=== PATIENT | female | born 1940 | race Caucasian/White ===

== ENCOUNTER 2017-01-19 17:31 | Emergency (ER) | payer MEDICARE, BC ==
[2017-01-19 17:52] VITALS: BP 156/106
--- NOTE | 2017-01-19 18:59 | EDM.PDOC ---
ED HPI GENERAL MEDICAL PROBLEM - General Chief Complaint: Gastrointestinal Problem Stated Complaint: LOWER ABD PAIN Time Seen by Provider: 01/19/17 18:55 Source of Information: Reports: Patient, Old Records History Limitations: Reports: No Limitations - History of Present Illness INITIAL COMMENTS - FREE TEXT/NARRATIVE: 77 yo female presents with intermittent low abdominal cramps and decreased stool output. No vomiting. Abdomen feels a little full. No hx of constipation. Onset: Gradual Onset Date: 01/16/17 Duration: Day(s):, Getting Worse Location: Reports: Abdomen Quality: Reports: Other (crampy) Severity: Moderate Improves with: Reports: None Worsens with: Reports: Other (time) Context: Reports: Other (unknown) Associated Symptoms: Reports: No Other Symptoms Treatments DISTILLERY MANAGER: Reports: Other (see below) (none) Abdomen Pain Score (Numeric/FACES): 4 - Related Data Allergies Allergy/AdvReac Type Severity Reaction Status Date / Time Penicillins Allergy Mild Swelling Verified 01/19/17 17:53 Home Meds: Home Meds Cholecalciferol (Vitamin D3) [Vitamin D3] 1,000 unit PO DAILY 01/08/13 [History] Levothyroxine [Synthroid] 88 mcg PO DAILY 01/08/13 [History] Potassium Chloride [Klor-Con M20] 10 meq PO DAILY 01/08/13 [History] Fluticasone Propionate [Flonase] 1 spray NASBOTH DAILY PRN 10/28/13 [History] Allopurinol 50 mg PO DAILY 01/24/14 [History] Furosemide [Lasix] 40 mg PO DAILY PRN 02/23/14 [History] Losartan Potassium [Cozaar] 100 mg PO DAILY 02/23/14 [History] Warfarin Sodium [Jantoven] 5 mg PO DAILY 02/23/14 [History] Citalopram [Citalopram HBr] 10 mg PO DAILY 11/18/15 [History] Clindamycin HCl [Cleocin] 600 mg PO ASDIRECTED PRN 11/18/15 [History] Magnesium Oxide 400 mg PO DAILY 11/18/15 [History] traMADol [Ultram] 50 tab PO Q8H PRN 11/18/15 [History] Metoprolol Succinate [Toprol Xl] 150 mg PO DAILY 01/19/17 [History] Pantoprazole Sodium [Protonix] 40 mg PO DAILY 01/19/17 [History] Past Medical History HEENT History: Reports: Allergic Rhinitis, Cataract, Hard of Hearing, Impaired Vision Cardiovascular History: Reports: Afib, Blood Clots/VTE/DVT, Hypertension Other Cardiovascular History: cardiac ablation 2013 Gastrointestinal History: Reports: Hemorrhoids, Irritable Bowel Syndrome, Other (See Below) Other Gastrointestinal History: diverticulitis Genitourinary History: Reports: None 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: Fibroids, Musculoskeletal History: Reports: Arthritis, Back Pain, Chronic, Other (See Below) Other Musculoskeletal History: herniated disc Psychiatric History: Reports: Depression Endocrine/Metabolic History: Reports: Other (See Below) Other Endocrine/Metabolic History: thyroid disease Oncologic (Cancer) History: Reports: Breast - Infectious Disease History Infectious Disease History: Reports: Chicken Pox - Past Surgical History HEENT Surgical History: Reports: Cataract Surgery, Tonsillectomy Other Cardiovascular Surgeries/Procedures: ablasion GI Surgical History: Reports: Cholecystectomy, Colostomy, Other (See Below) Female Surgical History: Reports: Hysterectomy, Other (See Below) Musculoskeletal Surgical History: Reports: Knee Replacement Oncologic Surgical History: Reports: Lumpectomy Dermatological Surgical History: Reports: None Social & Family History - Family History Family Medical History: Unobtainable - Tobacco Use Smoking Status *Q: Never Smoker Years of Tobacco use: 20 Used Tobacco, but Quit: Yes Month Tobacco Last Used: 1979 Second Hand Smoke Exposure: No - Caffeine Use Caffeine Use: Reports: None Other Caffeine Use: decaf - Alcohol Use Days Per Week of Alcohol Use: 0 - Recreational Drug Use Recreational Drug Use: No - Living Situation & Occupation Living situation: Reports: , with Spouse ED ROS GENERAL - Review of Systems Review Of Systems: See Below Constitutional: Reports: Decreased Appetite HEENT: Reports: No Symptoms Respiratory: Reports: No Symptoms Cardiovascular: Reports: No Symptoms GI/Abdominal: Reports: Abdominal Pain (intermittent), Constipation, Decreased Appetite, Distension (mild). Denies: Black Stool, Bloody Stool, Diarrhea, Hematemesis, Hematochezia, Melena : Reports: No Symptoms Musculoskeletal: Reports: No Symptoms Skin: Reports: No Symptoms ED EXAM, GI/ABD - Physical Exam Exam: See Below Exam Limited By: No Limitations General Appearance: Alert, WD/WN, No Apparent Distress Eyes: Bilateral: Normal Appearance Ears: Normal External Exam, Normal Canal, Hearing Grossly Normal Nose: Normal Inspection, Normal Mucosa, No Blood Throat/Mouth: Normal Inspection, Normal Lips, Normal Oropharynx, Normal Voice, No Airway Compromise Head: Atraumatic, Normocephalic Neck: Normal Inspection, Supple, Non-Tender Respiratory/Chest: No Respiratory Distress, Lungs Clear, Normal Breath Sounds, No Accessory Muscle Use Cardiovascular: Regular Rate, Rhythm, No Edema GI/Abdominal Exam: Normal Bowel Sounds, Soft, Non-Tender, No Distention Back Exam: Normal Inspection. No: CVA Tenderness (R), CVA Tenderness (L) Extremities: Normal Inspection, Normal Range of Motion, Non-Tender, No Pedal Edema Neurological: Alert, Oriented, CN II-XII Intact, Normal Cognition, Normal Gait, No Motor/Sensory Deficits Psychiatric: Normal Affect, Normal Mood Skin Exam: Warm, Dry, Intact, Normal Color, No Rash Lymphatic: No Adenopathy Course - Vital Signs Text/Narrative:: Fleets enema with small results KUB [id number] stool only Tap water enema-moderate results after several attempts, nurse not able to pass enema tool more than about 6 inches up the rectum before meeting resistance. Has a hx of bowel surgery, resection, for diverticular dz Last Recorded V/S: Last Vital Signs Temp 36.5 C 01/19/17 17:51 Pulse 115 H 01/19/17 17:51 Resp 14 01/19/17 17:51 BP 156/106 H 01/19/17 17:51 Pulse Ox 94 L 01/19/17 17:51 - Orders/Labs/Meds Orders: Active Orders 24 hr Category Date Time Status Enema [RC] ASDIRECTED Care 01/19/17 18:55 Active Enema [RC] ASDIRECTED Care 01/19/17 20:07 Active Abdomen 1V Flat [CR] Stat Exams 01/19/17 19:20 Taken Labs: Laboratory Tests 01/19/17 Range/Units 20:22 Urine Color Yellow Urine Appearance Clear Urine pH 6.0 (4.5-8.0) Ur Specific [place] 1.010 (1.008-1.030) Urine Protein Negative (NEGATIVE) mg/dL Urine Glucose (UA) Normal (NEGATIVE) mg/dL Urine Ketones Negative (NEGATIVE) mg/dL Urine Occult Blood Negative (NEGATIVE) Urine Nitrite Negative (NEGATIVE) Urine Bilirubin Negative (NEGATIVE) Urine Urobilinogen Normal (NORMAL) mg/dL Ur Leukocyte Esterase Negative (NEGATIVE) Urine RBC 0-5 (0-5) Urine WBC 0-5 (0-5) Ur Epithelial Cells Few Amorphous Sediment Few Urine Bacteria Rare Urine Mucus Few Meds: Medications Discontinued Medications Generic Name Dose Route Start Last Admin Trade Name Clemencia PRN Reason Stop Dose Admin Sodium Biphosphate/Sodium Phosphate 133 ml 01/19/17 19:08 01/19/17 19:09 Fleet Enema RECTAL 01/19/17 19:09 133 ml ONETIME ONE Administration Departure - Departure Time of Disposition: 22:17 Disposition: Home, Self-Care 01 Condition: Good Clinical Impression: Constipation, Colonic stricture - Discharge Information Referrals: Reggie Leonard MD [Primary Care Provider] - Forms: ED Department Discharge - My Orders Last 24 Hours: My Active Orders 01/19/17 18:55 Enema [RC] ASDIRECTED 01/19/17 19:20 Abdomen 1V Flat [CR] Stat 01/19/17 20:07 Enema [RC] ASDIRECTED - Assessment/Plan Last 24 Hours: My Active Orders 01/19/17 18:55 Enema [RC] ASDIRECTED 01/19/17 19:20 Abdomen 1V Flat [CR] Stat 01/19/17 20:07 Enema [RC] ASDIRECTED
[2017-01-19] MEDS ORDERED: Sodium Phosphate,Monobasic/Sodium Phosphate,Dibasic Enema 133 ML Bottle RECTAL ONE (19:08)
[2017-01-19] MEDS ORDERED: Magnesium Citrate Solution 296 ML Bottle PO ONE (22:15)
--- NOTE | 2017-01-20 10:53 | CR ---
Supine abdomen There is moderate stool retention within the colon. There is no large or small bowel distention. Ther e is a surgical anastomosis seen in the pelvic region. Impression: 1. Moderate stool retention. 2. No acute findings.
== END 2017-01-19 22:36 | disposition home or self-care (01) ==
LOC: JP.ED 17:31
DX: K56.699 Other intestinal obstruction unspecified as to partial versus complete obstruction (principal); K59.00 Constipation, unspecified; Z88.0 Allergy status to penicillin
CPT/HCPCS: 74000; 81001; 99284; A9270; 99283

== ENCOUNTER 2017-01-31 06:47 | Day surgery (SDC) | payer MEDICARE, BC ==
[2017-01-31] MEDS ORDERED: Propofol 200 MG/20 ML SDV ONE (07:08)
[2017-01-31] MEDS ORDERED: fentaNYL 100 MCG/2 ML SDV ONE (07:08)
[2017-01-31] MEDS ORDERED: Neomycin/Polymyxin B 1 ML, Sodium Chloride 0.9% 750 ML ONE ×2 (07:15)
[2017-01-31] MEDS ORDERED: Dextrose 5%-Lactated Ringers 1,000 ML IV SCH (07:30)
[2017-01-31] MEDS ORDERED: Naloxone 0.4 MG/ML SDV ONE (09:47)
[2017-01-31 11:01] VITALS: BP 142/85
--- NOTE | 2017-02-01 17:14 | OR ---
DATE OF PROCEDURE: 01/31/2017 PREOPERATIVE DIAGNOSIS: Obstipation with intent to rule out stricture at colorectal anastomosis. POSTOPERATIVE DIAGNOSIS: No stricture at colorectal anastomosis identified. OPERATIVE PROCEDURE: Flexible sigmoidoscopy. ANESTHESIA: IV sedation. INDICATION FOR PROCEDURE: This is a 77-year-old presenting with some persistent obstipation. She had a colonoscopy along with a barium enema in March of this year. At the time of colonoscopy, she did have a small tubular adenoma removed within the left colon. Her colon was extremely elongated which despite having previous segmental resection, precluded a full colonoscopy, and this was likely the cause of her relative obstipation. She has been treating this reasonably well with some MiraLAX, and she has been instructed to try to adjust the MiraLAX to more or less keep the bowels regular, increasing and decreasing the dose as needed. To rule out any interval colorectal anastomosis stricture, she is to undergo flexible sigmoidoscopy. Potential risks including bleeding and perforation were discussed, and the patient wishes to proceed. DETAILS OF PROCEDURE: The patient was taken to the operating room and placed in a left lateral decubitus position. IV sedation was administered, after which the initial digital rectal exam was performed and was unremarkable. The scope was then passed to roughly 60 cm, which would be well above the area of the colorectal anastomosis. That area was visualized and no stricturing was seen. The scope was then withdrawn, and the procedure was then concluded. The patient will be following up with Dr. Leonard in [facility] in 3 to 4 weeks. One option, if she has continued problems with the obstipation, would be to add something like Amitiza or Linzess. Otherwise, she should have a repeat colonoscopy probably in about 2 years given a tubular adenoma that was removed this past March. Fernando White MD /[id number]
== END 2017-01-31 11:03 | disposition home or self-care (01) ==
LOC: JP.SDS 06:47
PROVIDERS: ATTEND Surgery
DX: K59.00 Constipation, unspecified (principal); Z85.038 Personal history of other malignant neoplasm of large intestine; I10 Essential (primary) hypertension; E03.9 Hypothyroidism, unspecified; E66.9 Obesity, unspecified; G47.30 Sleep apnea, unspecified; Z88.0 Allergy status to penicillin; Z87.891 Personal history of nicotine dependence; Z90.49 Acquired absence of other specified parts of digestive tract; Z98.890 Other specified postprocedural states; Z90.710 Acquired absence of both cervix and uterus; Z96.659 Presence of unspecified artificial knee joint; Z68.30 Body mass index [BMI] 30.0-30.9, adult; F41.9 Anxiety disorder, unspecified; F32.9 Major depressive disorder, single episode, unspecified
CPT/HCPCS: 45330; A4217; J2310; J2704; J3010; J7042

== ENCOUNTER 2017-07-05 09:53 | Emergency (ER) | payer MEDICARE, BC ==
[2017-07-05 10:04] VITALS: BP 96/63
[2017-07-05] MEDS ORDERED: Sodium Chloride 0.9% 1,000 ML IV SCH (10:30)
--- NOTE | 2017-07-05 10:34 | EDM.PDOC ---
ED HPI GENERAL MEDICAL PROBLEM - General Chief Complaint: Respiratory Problem Stated Complaint: WEAK/FATIGUED Time Seen by Provider: 07/05/17 10:29 Source of Information: Reports: Patient History Limitations: Reports: No Limitations - History of Present Illness INITIAL COMMENTS - FREE TEXT/NARRATIVE: pt is feeling very weak nd is feeling sob. Onset: Gradual, Other (pt has been very fatiqued since she had the pneumonia. She is mildly sob. She had a echo at [facility] which did not show marked changes. She had a ejection fraction of 40 which is mildly depressed/ ) Location: Reports: Chest Quality: Reports: Other (pt has no chest pain but is sob. ) Severity: Moderate - Related Data Allergies Allergy/AdvReac Type Severity Reaction Status Date / Time Penicillins Allergy Mild Swelling Verified 01/31/17 08:00 Home Meds: Home Meds Cholecalciferol (Vitamin D3) [Vitamin D3] 1,000 unit PO DAILY 01/08/13 [History] Levothyroxine [Synthroid] 88 mcg PO DAILY 01/08/13 [History] Potassium Chloride [Klor-Con M20] 20 meq PO BID 01/08/13 [History] Fluticasone Propionate [Flonase] 1 spray NASBOTH DAILY PRN 10/28/13 [History] Allopurinol 50 mg PO DAILY 01/24/14 [History] Furosemide [Lasix] 40 mg PO BID PRN 02/23/14 [History] Losartan Potassium [Cozaar] 100 mg PO DAILY 02/23/14 [History] Warfarin Sodium [Jantoven] 5 mg PO DAILY 02/23/14 [History] Magnesium Oxide 400 mg PO DAILY 11/18/15 [History] Metoprolol Succinate [Toprol Xl] 100 mg PO DAILY 01/19/17 [History] ALPRAZolam [Xanax] 0.5 mg PO BID PRN 01/27/17 [History] Ondansetron HCl [Zofran] 4 mg PO ACBREAKFAST PRN 07/05/17 [History] Past Medical History HEENT History: Reports: Allergic Rhinitis, Cataract, Hard of Hearing, Impaired Vision Cardiovascular History: Reports: Afib, Blood Clots/VTE/DVT, Hypertension Other Cardiovascular History: cardiac ablation 2013 Respiratory History: Reports: Sleep Apnea Gastrointestinal History: Reports: Cholelithiasis, Colon Polyp, Hemorrhoids, Irritable Bowel Syndrome, Other (See Below) Other Gastrointestinal History: diverticulitis Genitourinary History: Reports: None 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: 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, Musculoskeletal History: Reports: Arthritis, Back Pain, Chronic, Fracture, Gout , Other (See Below) Other Musculoskeletal History: herniated disc Psychiatric History: Reports: Anxiety, Depression Endocrine/Metabolic History: Reports: Hypothyroidism, Obesity/BMI 30+, Other ( See Below) Other Endocrine/Metabolic History: thyroid disease Oncologic (Cancer) History: Reports: Breast - Infectious Disease History Infectious Disease History: Reports: Chicken Pox, Measles - Past Surgical History HEENT Surgical History: Reports: Cataract Surgery, Tonsillectomy Cardiovascular Surgical History: Reports: Other (See Below) Other Cardiovascular Surgeries/Procedures: ablasion Respiratory Surgical History: Reports: None GI Surgical History: Reports: Cholecystectomy, Colonoscopy, Colostomy Female Surgical History: Reports: Breast Biopsy, Hysterectomy Endocrine Surgical History: Reports: None Musculoskeletal Surgical History: Reports: Knee Replacement Oncologic Surgical History: Reports: Biopsy of Breast, Lumpectomy Dermatological Surgical History: Reports: None Social & Family History - Family History Family Medical History: Unobtainable - Tobacco Use Smoking Status *Q: Never Smoker Years of Tobacco use: 25 Packs/Tins Daily: 0.5 Used Tobacco, but Quit: Yes Month/Year Tobacco Last Used: March Second Hand Smoke Exposure: No - Caffeine Use Caffeine Use: Reports: Coffee Other Caffeine Use: decaf - Alcohol Use Days Per Week of Alcohol Use: 0 - Recreational Drug Use Recreational Drug Use: No - Living Situation & Occupation Living situation: Reports: , with Spouse ED ROS GENERAL - Review of Systems Review Of Systems: See Below Constitutional: Reports: Other (pt did spike a high temp at the onset of the illness. She has not been running temps since that time. ) HEENT: Reports: No Symptoms Respiratory: Reports: Shortness of Breath, Other ( no chest pain) Cardiovascular: Reports: No Symptoms, Other (marked fatique/ ) Endocrine: Reports: No Symptoms GI/Abdominal: Reports: No Symptoms : Reports: No Symptoms Musculoskeletal: Reports: No Symptoms Skin: Reports: No Symptoms ED EXAM, GENERAL - Physical Exam Exam: See Below Free Text/Narrative:: pt arrived with fatique and sob. She had pneumonia and some mild chf and was seen at [facility]. Exam Limited By: No Limitations General Appearance: Alert, Anxious, Mild Distress, Other (pupils are equal and reactive. ) Ears: Normal TMs Nose: Normal Inspection Throat/Mouth: Normal Inspection Head: Atraumatic Neck: Normal Inspection Respiratory/Chest: No Respiratory Distress, Other ( Pt has no rales or infiltrate noticed. ) Cardiovascular: Regular Rate, Rhythm GI/Abdominal: Soft, Non-Tender (Female) Exam: Deferred Rectal (Female) Exam: Deferred Back Exam: Normal Inspection Extremities: Normal Inspection Neurological: Alert, Oriented, Normal Cognition Course - Vital Signs Last Recorded V/S: Last Vital Signs Temp 35.5 C 07/05/17 10:04 Pulse 82 07/05/17 10:04 Resp 26 H 07/05/17 10:04 BP 96/63 07/05/17 10:04 Pulse Ox 99 07/05/17 10:04 Orthostatic Blood Pressure [ 110/81 Standing] Orthostatic Blood Pressure [ 101/74 Sitting] Orthostatic Blood Pressure [ 119/64 Supine] - Orders/Labs/Meds Labs: Laboratory Tests 07/05/17 07/05/17 07/05/17 Range/Units 10:20 10:20 10:20 WBC 10.1 (4.5-11.0) K/uL RBC 5.46 (3.30-5.50) M/uL Hgb 16.2 H D (12.0-15.0) g/dL Hct 47.2 (36.0-48.0) % MCV 86 (80-98) fL MCH 30 (27-31) pg MCHC 34 (32-36) % Plt Count 311 (150-400) K/uL Neut % (Auto) 62 (36-66) % Lymph % (Auto) 26 (24-44) % [place] % (Auto) 11 H (2-6) % Eos % (Auto) 2 (2-4) % Baso % (Auto) 0 (0-1) % Sodium 136 L (140-148) mmol/L Potassium 3.1 L (3.6-5.2) mmol/L Chloride 97 L (100-108) mmol/L Carbon Dioxide 28 (21-32) mmol/L Anion Gap 14.1 H (5.0-14.0) mmol/L BUN 26 H D (7-18) mg/dL Creatinine 1.3 H (0.6-1.0) mg/dL Est Cr Clr Drug Dosing 33.13 mL/min Estimated GFR (MDRD) 40 L (>60) Glucose 120 H (74-106) mg/dL Calcium 9.8 D (8.5-10.1) mg/dL Total Bilirubin 1.2 H D (0.2-1.0) mg/dL AST 21 (15-37) U/L ALT 37 (12-78) U/L Alkaline Phosphatase 47 (46-116) U/L C-Reactive Protein 0.10 (0.0-0.3) mg/dL NT-Pro-B Natriuret Pep (5-450) pg/mL Total Protein 6.1 L (6.4-8.2) g/dL Albumin 3.2 L (3.4-5.0) g/dL Globulin 2.9 (2.3-3.5) g/dL Albumin/Globulin Ratio 1.1 L (1.2-2.2) TSH, Ultra Sensitive (0.358-3.740) uIU/mL Urine Color Urine Appearance Urine pH (4.5-8.0) Ur Specific [place] (1.008-1.030) Urine Protein (NEGATIVE) mg/dL Urine Glucose (UA) (NEGATIVE) mg/dL Urine Ketones (NEGATIVE) mg/dL Urine Occult Blood (NEGATIVE) Urine Nitrite (NEGATIVE) Urine Bilirubin (NEGATIVE) Urine Urobilinogen (NORMAL) mg/dL Ur Leukocyte Esterase (NEGATIVE) Urine RBC (0-5) Urine WBC (0-5) Ur Epithelial Cells Amorphous Sediment Urine Bacteria Urine Mucus 07/05/17 07/05/17 07/05/17 Range/Units 10:29 10:35 11:02 WBC (4.5-11.0) K/uL RBC (3.30-5.50) M/uL Hgb (12.0-15.0) g/dL Hct (36.0-48.0) % MCV (80-98) fL MCH (27-31) pg MCHC (32-36) % Plt Count (150-400) K/uL Neut % (Auto) (36-66) % Lymph % (Auto) (24-44) % [place] % (Auto) (2-6) % Eos % (Auto) (2-4) % Baso % (Auto) (0-1) % Sodium (140-148) mmol/L Potassium (3.6-5.2) mmol/L Chloride (100-108) mmol/L Carbon Dioxide (21-32) mmol/L Anion Gap (5.0-14.0) mmol/L BUN (7-18) mg/dL Creatinine (0.6-1.0) mg/dL Est Cr Clr Drug Dosing mL/min Estimated GFR (MDRD) (>60) Glucose (74-106) mg/dL Calcium (8.5-10.1) mg/dL Total Bilirubin (0.2-1.0) mg/dL AST (15-37) U/L ALT (12-78) U/L Alkaline Phosphatase (46-116) U/L C-Reactive Protein (0.0-0.3) mg/dL NT-Pro-B Natriuret Pep 433 (5-450) pg/mL Total Protein (6.4-8.2) g/dL Albumin (3.4-5.0) g/dL Globulin (2.3-3.5) g/dL Albumin/Globulin Ratio (1.2-2.2) TSH, Ultra Sensitive 4.571 H (0.358-3.740) uIU/mL Urine Color Yellow Urine Appearance Slightly cloudy Urine pH 8.0 (4.5-8.0) Ur Specific [place] 1.010 (1.008-1.030) Urine Protein Negative (NEGATIVE) mg/dL Urine Glucose (UA) Normal (NEGATIVE) mg/dL Urine Ketones Negative (NEGATIVE) mg/dL Urine Occult Blood Negative (NEGATIVE) Urine Nitrite Negative (NEGATIVE) Urine Bilirubin Negative (NEGATIVE) Urine Urobilinogen Normal (NORMAL) mg/dL Ur Leukocyte Esterase Moderate (NEGATIVE) Urine RBC 0-5 (0-5) Urine WBC 0-5 (0-5) Ur Epithelial Cells Moderate Amorphous Sediment Not seen Urine Bacteria Not seen Urine Mucus Rare Meds: Medications Discontinued Medications Generic Name Dose Route Start Last Admin Trade Name Freq PRN Reason Stop Dose Admin Sodium Chloride 1,000 mls @ 500 mls/hr 07/05/17 10:30 07/05/17 10:51 Normal Saline IV 500 mls/hr ASDIRECTED KELLIE Administration - Re-Assessments/Exams Free Text/Narrative Re-Assessment/Exam: 07/05/17 12:01 Pt did not have any infiltrates in the chest, mild cardiomegoly, Her bp was low on arrival and by history she was taking 2 lasix 20mg daily and she is still taking her hydrochlothiazide. She is .finished with the doxecyline. She has a borderline low thyroid. Will decrease her metoprol to 1/2 tablet daily. The k is on the low side will double that. She will return for a lexiscan. Departure - Departure Time of Disposition: 12:10 Disposition: Home, Self-Care 01 Condition: Fair Clinical Impression: SOB (shortness of breath), Weakness, Hypotension - Discharge Information Instructions: Shortness of Breath, Adult, [id number], Hypotension, Easy-to- Read, Weakness, [id number] Referrals: Reggie Leonard MD [Primary Care Provider] - Forms: ED Department Discharge Care Plan Goals: rtc for a lexiscan, pt to follow up with Dr Leonard regarding the lexiscan stop the hydrochlothiazid, reduce the lasix to 1 tab bid one day and 1 tab the next, hold coumadin until monday get inr at [place] on monday, reduce metoprol to 1/2 tab daily, increase kcl to 2 tabs daily. Tsh is greater than 4. Dr Leonard to evaluate that.
--- NOTE | 2017-07-05 11:11 | CR ---
Chest 2V INDICATION: sob , recent pneumonia. FINDINGS: Comparison to 05/08/2016. Heart size minimally enlarged. The infiltrate or atelectasis the l leni bases has resolved. Pulmonary venous hypertension has resolved. No new focal infiltrate. Stable h ypertrophic changes thoracic spine.
== END 2017-07-05 13:19 | disposition home or self-care (01) ==
LOC: JP.ED 09:53
DX: I95.9 Hypotension, unspecified (principal); R06.02 Shortness of breath; R53.1 Weakness; I10 Essential (primary) hypertension; E66.9 Obesity, unspecified; Z79.899 Other long term (current) drug therapy; Z88.0 Allergy status to penicillin; Z79.01 Long term (current) use of anticoagulants
CPT/HCPCS: 36415; 71046; 80053; 81001; 83880; 84443; 85025; 86140; 96360; 96361; 99285; J7040

== ENCOUNTER 2017-07-27 20:30 | Emergency (ER) | payer MEDICARE, BC ==
[2017-07-27 21:05] VITALS: BP 148/81
--- NOTE | 2017-07-27 21:49 | EDM.PDOC ---
ED HPI GENERAL MEDICAL PROBLEM - General Chief Complaint: Head Injury Stated Complaint: FELL/WORRIED ABOUT COUMADIN Time Seen by Provider: 07/27/17 21:36 Source of Information: Reports: Patient History Limitations: Reports: No Limitations - History of Present Illness INITIAL COMMENTS - FREE TEXT/NARRATIVE: This lady comes in for a minor head injury. Earlier today she was leaning over doing something with her rowell. She sort of lost her balance and fell forward bumping her head against a wooden flower box. She's worried because she takes Coumadin. About a week ago her INR was 6 and I believe in the dosage adjustment was made. It was rechecked day before yesterday and was 1.7. She's taking her standard dose. She said she thinks there is a little bump on her for head. There was nothing to suggest a concussion or loss of consciousness. She did not hit her head on the ground - Related Data Allergies Allergy/AdvReac Type Severity Reaction Status Date / Time Penicillins Allergy Mild Swelling Verified 07/07/17 11:53 Home Meds: Home Meds Cholecalciferol (Vitamin D3) [Vitamin D3] 5,000 unit PO DAILY 01/08/13 [History] Levothyroxine [Synthroid] 88 mcg PO DAILY 01/08/13 [History] Potassium Chloride [Klor-Con M20] 20 meq PO BID 01/08/13 [History] Fluticasone Propionate [Flonase] 1 spray NASBOTH DAILY PRN 10/28/13 [History] Allopurinol 50 mg PO DAILY 01/24/14 [History] Furosemide [Lasix] 40 mg PO BID PRN 02/23/14 [History] Losartan Potassium [Cozaar] 100 mg PO DAILY 02/23/14 [History] Warfarin Sodium [Jantoven] 5 mg PO DAILY 02/23/14 [History] Magnesium Oxide 400 mg PO DAILY 11/18/15 [History] Metoprolol Succinate [Toprol Xl] 100 mg PO DAILY 01/19/17 [History] ALPRAZolam [Xanax] 0.5 mg PO BID PRN 01/27/17 [History] Citalopram [Citalopram HBr] 20 mg PO DAILY 07/27/17 [History] Past Medical History HEENT History: Reports: Allergic Rhinitis, Cataract, Hard of Hearing, Impaired Vision Cardiovascular History: Reports: Afib, Blood Clots/VTE/DVT, Hypertension Other Cardiovascular History: cardiac ablation 2013 Respiratory History: Reports: Sleep Apnea Gastrointestinal History: Reports: Cholelithiasis, Colon Polyp, Hemorrhoids, Irritable Bowel Syndrome, Other (See Below) Other Gastrointestinal History: diverticulitis Genitourinary History: Reports: None 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: Fibroids, Musculoskeletal History: Reports: Arthritis, Back Pain, Chronic, Fracture, Gout , Other (See Below) Other Musculoskeletal History: herniated disc Psychiatric History: Reports: Anxiety, Depression Endocrine/Metabolic History: Reports: Hypothyroidism, Obesity/BMI 30+, Other ( See Below) Other Endocrine/Metabolic History: thyroid disease Oncologic (Cancer) History: Reports: Breast - Infectious Disease History Infectious Disease History: Reports: Chicken Pox, Measles, Mumps - Past Surgical History HEENT Surgical History: Reports: Cataract Surgery, Tonsillectomy Cardiovascular Surgical History: Reports: Other (See Below) Other Cardiovascular Surgeries/Procedures: ablasion Respiratory Surgical History: Reports: None GI Surgical History: Reports: Cholecystectomy, Colonoscopy, Colostomy Female Surgical History: Reports: Breast Biopsy, Hysterectomy Endocrine Surgical History: Reports: None Musculoskeletal Surgical History: Reports: Knee Replacement Oncologic Surgical History: Reports: Biopsy of Breast, Lumpectomy Dermatological Surgical History: Reports: None Social & Family History - Family History Family Medical History: Unobtainable - Tobacco Use Smoking Status *Q: Never Smoker Years of Tobacco use: 25 Packs/Tins Daily: 0.5 Used Tobacco, but Quit: Yes Month/Year Tobacco Last Used: March Second Hand Smoke Exposure: No - Caffeine Use Caffeine Use: Reports: Coffee Other Caffeine Use: decaf - Alcohol Use Days Per Week of Alcohol Use: 0 - Recreational Drug Use Recreational Drug Use: No - Living Situation & Occupation Living situation: Reports: , with Spouse ED ROS GENERAL - Review of Systems Review Of Systems: ROS reveals no pertinent complaints other than HPI. ED EXAM, HEAD INJURY - Physical Exam Exam: See Below Exam Limited By: No Limitations General Appearance: Alert, WD/WN, No Apparent Distress Head: Atraumatic (I examined her scalp and for head closely and I don't see any evidence of any trauma. She did indicate one area where she thinks she can feel a little bump. I palpated the area that really don't appreciate anything.) Eyes: Bilateral Eye: EOMI, PERRL Throat/Mouth: Normal Inspection Neurologic: Alert, Normal Mood/Affect, Oriented x 3 Course - Vital Signs Last Recorded V/S: Last Vital Signs Temp 35.8 C 07/27/17 21:05 Pulse 111 H 07/27/17 21:05 Resp 16 07/27/17 21:05 BP 148/81 H 07/27/17 21:05 Pulse Ox 98 07/27/17 21:05 Departure - Departure Time of Disposition: 21:48 Disposition: Home, Self-Care 01 Condition: Good Clinical Impression: Minor head injury - Discharge Information Referrals: Reggie Leonard MD [Primary Care Provider] - Forms: ED Department Discharge Additional Instructions: The injury you got is very very slight and I don't think there is any risk at all of internal bleeding from this. follow-up with your doctor as planned for a repeat INR next week or as recommended by your
== END 2017-07-27 22:04 | disposition home or self-care (01) ==
LOC: JP.ED 20:30
DX: S09.90XA Unspecified injury of head, initial encounter (principal); I10 Essential (primary) hypertension; E03.9 Hypothyroidism, unspecified; I48.91 Unspecified atrial fibrillation; Z88.0 Allergy status to penicillin; Z79.899 Other long term (current) drug therapy; Z79.01 Long term (current) use of anticoagulants; Z87.891 Personal history of nicotine dependence; W19.XXXA Unspecified fall, initial encounter; W22.8XXA Striking against or struck by other objects, initial encounter
CPT/HCPCS: 99283

== ENCOUNTER → 2018-05-10 | Day surgery (SDC) | payer BC, MEDICARE ==
[~2018-05-10] MED LIST: Dextrose 5%-Lactated Ringers 1,000 ML IV SCH; Meropenem 500 MG SDV ONE; Propofol 200 MG/20 ML SDV ONE; Sodium Chloride 0.9% 10 ML ONE; fentaNYL 100 MCG/2 ML SDV ONE
[2018-05-10 10:38] VITALS: BP 122/70
--- NOTE | 2018-05-17 12:33 | OR ---
DATE OF PROCEDURE: 05/10/2018 PREOPERATIVE DIAGNOSES: 1. Persistent constipation. 2. History of adenomatous polyps. POSTOPERATIVE DIAGNOSES: 1. Persistent constipation with mild stricturing at colorectal anastomosis. 2. No recurrent colon polyps. OPERATIVE PROCEDURE: Flexible colonoscopy with dilation of stricture at colorectal anastomosis (94017). ANESTHESIA: IV sedation. INDICATION FOR PROCEDURE: This is a 78-year-old presenting with some ongoing constipation. She also has history of colon polyps in the past. Plan is to proceed with a flexible colonoscopy with biopsies, polypectomy, and/or dilation of any strictures once identified were gone over, and the patient wished to proceed. Potential risks including bleeding and perforation were discussed, and the patient wishes to proceed. DETAILS OF PROCEDURE: The patient was taken to the operating room and placed in a left lateral decubitus position. IV sedation was administered, after which the initial digital rectal exam was performed and was unremarkable. Colonoscope was then passed into the rectum with retroflexion revealing uncomplicated hemorrhoidal columns. The scope was eventually passed up to the level of the colorectal anastomosis. This was mildly narrowed, but the scope was able to be passed through that area. Proximal to that, no additional abnormalities were noted. The prep was fairly good with there only being a small amount of liquid and solid stool present. No additional polyps or other pathology were seen. The scope was withdrawn. At that point, at the colorectal anastomosis, a Bard gastrointestinal balloon catheter was inflated to 54-Wolof size. This was held in position for 1 minute, after which the balloon catheter was deflated and withdrawn. Visualization showed a small amount of blood indicating some degree of dilation, but this was a very mild stricture to begin with. The scope was then withdrawn, and the procedure then concluded. The plan will be to have the patient follow up with us in 2 weeks. If she continues to have significant constipation dilation, I think we can start with some additional stool softeners and intermittent bowel stimulation. If that fails, do order something such as Amitiza or Levsin. A certain degree of stricturing at this point would not be itself enough to cause significant problems with constipation. Fernando White MD /[id number]
== END ==
LOC: JP.SDS 07:28
PROVIDERS: ATTEND Surgery
DX: K59.00 Constipation, unspecified (principal); K91.89 Other postprocedural complications and disorders of digestive system; K64.9 Unspecified hemorrhoids; I50.9 Heart failure, unspecified; I48.91 Unspecified atrial fibrillation; N17.9 Acute kidney failure, unspecified; Z86.010 Personal history of colon polyps
CPT/HCPCS: J2185; J2704; J3010; J7042

== ENCOUNTER 2018-05-25 07:24 | Observation (INO) | payer MEDICARE ==
[2018-05-25] MEDS ORDERED: Albuterol 0.083% 2.5 MG/3 ML Neb Soln NEB ONE (08:26)
--- NOTE | 2018-05-25 09:13 | CRLCR ---
INDICATION: Shortness of breath. COMPARISON: Chest radiograph July 05, 2017. TECHNIQUE: Two-view chest. FINDINGS: Normal size cardiac silhouette. Clear lung cao without evidence of acute pneumonic infiltrates or CHF. No pneumothorax or pleural effusion. IMPRESSION: Negative chest. Dictated by Carlos Austin MD @ May 25 2018 9:10AM Signed by Dr. Carlos Austin @ May 25 2018 9:12AM
--- NOTE | 2018-05-25 10:05 | EDM.PDOC ---
ED HPI GENERAL MEDICAL PROBLEM - General Chief Complaint: Respiratory Problem Stated Complaint: TEMP, SINUS, BODY ACHES Time Seen by Provider: 05/25/18 08:25 Source of Information: Reports: Patient History Limitations: Reports: Other (Is difficult to get much history from this lady because she acts like she feels so bad.) - History of Present Illness INITIAL COMMENTS - FREE TEXT/NARRATIVE: This lady says that she started getting sick a month ago. It started out with some sinus drainage and so forth then seems to go into her chest. She seems to have a little bit of shortness of breath that sort of comes and goes. She saw Dr. Webber on Monday or 3 days ago. He prescribed some Bactrim as well as Robitussin before meals. The Robitussin made her feel goofy so she threw it away. She complains of a low-grade fever off-and-on but says it was up to 101.5 yesterday and again this morning. She hasn't taken any Tylenol for this she did complain of some pain in her shoulders and elbow. She has a history of atrial fibrillation and congestive heart failure. - Related Data Allergies Allergy/AdvReac Type Severity Reaction Status Date / Time Penicillins Allergy Mild Swelling Verified 05/10/18 08:06 celecoxib Allergy Other Verified 05/10/18 08:06 Home Meds: Home Meds Cholecalciferol (Vitamin D3) [Vitamin D3] 2,000 unit PO DAILY 01/08/13 [History] Levothyroxine [Synthroid] 88 mcg PO DAILY 01/08/13 [History] Potassium Chloride [Klor-Con M20] 40 meq PO DAILY 01/08/13 [History] Fluticasone Propionate [Flonase] 1 spray NASBOTH DAILY PRN 10/28/13 [History] Allopurinol 100 mg PO DAILY 01/24/14 [History] Furosemide [Lasix] 40 mg PO DAILY 02/23/14 [History] Losartan Potassium [Cozaar] 100 mg PO DAILY 02/23/14 [History] Warfarin Sodium [Jantoven] 5 mg PO DAILY 02/23/14 [History] Magnesium Oxide 400 mg PO DAILY 11/18/15 [History] Metoprolol Succinate [Toprol Xl] 200 mg PO DAILY 01/19/17 [History] ALPRAZolam [Xanax] 0.5 mg PO BID PRN 01/27/17 [History] Omeprazole 20 mg PO DAILY 05/09/18 [History] Spironolactone [Aldactone] 25 mg PO DAILY 05/09/18 [History] Past Medical History HEENT History: Reports: Allergic Rhinitis, Cataract, Hard of Hearing, Impaired Vision Cardiovascular History: Reports: Afib, Blood Clots/VTE/DVT, Hypertension Other Cardiovascular History: cardiac ablation 2013 Respiratory History: Reports: Sleep Apnea Gastrointestinal History: Reports: Cholelithiasis, Colon Polyp, Hemorrhoids, Irritable Bowel Syndrome, Other (See Below) Other Gastrointestinal History: diverticulitis Genitourinary History: Reports: None 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: Fibroids, Musculoskeletal History: Reports: Arthritis, Back Pain, Chronic, Fracture, Gout , Other (See Below) Other Musculoskeletal History: herniated disc Psychiatric History: Reports: Anxiety, Depression Endocrine/Metabolic History: Reports: Hypothyroidism, Obesity/BMI 30+, Other ( See Below) Other Endocrine/Metabolic History: thyroid disease Oncologic (Cancer) History: Reports: Breast - Infectious Disease History Infectious Disease History: Reports: Chicken Pox, Measles, Mumps - Past Surgical History HEENT Surgical History: Reports: Cataract Surgery, Tonsillectomy Cardiovascular Surgical History: Reports: Other (See Below) Other Cardiovascular Surgeries/Procedures: ablasion Respiratory Surgical History: Reports: None GI Surgical History: Reports: Cholecystectomy, Colonoscopy, Colostomy Female Surgical History: Reports: Breast Biopsy, Hysterectomy Endocrine Surgical History: Reports: None Musculoskeletal Surgical History: Reports: Knee Replacement Oncologic Surgical History: Reports: Biopsy of Breast, Lumpectomy Dermatological Surgical History: Reports: None Social & Family History - Family History Family Medical History: Unobtainable - Tobacco Use Smoking Status *Q: Never Smoker - Caffeine Use Caffeine Use: Reports: Coffee Other Caffeine Use: decaf - Recreational Drug Use Recreational Drug Use: No - Living Situation & Occupation Living situation: Reports: , with Spouse ED ROS GENERAL - Review of Systems Review Of Systems: See Below Constitutional: Reports: Fever, Chills HEENT: Reports: No Symptoms Respiratory: Reports: Shortness of Breath, Wheezing, Cough, Sputum (Yellowish sputum) Cardiovascular: Reports: No Symptoms, Other (Some shoulder and elbow pain) Endocrine: Reports: No Symptoms GI/Abdominal: Reports: No Symptoms : Reports: No Symptoms Musculoskeletal: Reports: No Symptoms Skin: Reports: No Symptoms Neurological: Reports: No Symptoms ED EXAM, GENERAL - Physical Exam Exam: See Below Exam Limited By: No Limitations General Appearance: Alert, WD/WN, Moderate Distress (This lady asked like she feels very bad. She is making some grunting noises from the larynx when she exhales.) Eye Exam: Bilateral Eye: Normal Inspection Throat/Mouth: Normal Oropharynx Head: Atraumatic Neck: Other (See general above) Respiratory/Chest: Other (I hear some transmitted breath sounds I think that's all coming from her larynx) Cardiovascular: Regular Rate, Rhythm GI/Abdominal: Soft, Non-Tender Back Exam: Normal Inspection Extremities: Normal Inspection Neurological: Alert, Oriented Psychiatric: Normal Affect Skin Exam: Warm, Dry Course - Vital Signs Last Recorded V/S: Last Vital Signs Temp 37.4 C 05/25/18 15:54 Pulse 77 05/25/18 15:54 Resp 18 05/25/18 15:54 BP 117/102 H 05/25/18 15:54 Pulse Ox 93 L 05/25/18 15:54 - Orders/Labs/Meds Orders: Active Orders 24 hr Category Date Time Status RT Aerosol Therapy [RC] ASDIRECTED Care 05/25/18 08:28 Inactive Sodium Chloride 0.9% [Saline Flush] Med 05/25/18 10:09 Active 10 ml FLUSH ASDIRECTED PRN Saline Lock Insert [OM.PC] Urgent Oth 05/25/18 10:09 Ordered EKG 12 Lead [EK] Urgent Ther 05/25/18 08:26 Stop Req Medication Orders Acetaminophen (Tylenol) 650 mg PO Q4H PRN PRN Reason: Pain (Mild 1-3)/fever Albuterol (Proventil Neb Soln) 2.5 mg NEB Q4H PRN PRN Reason: Shortness Of Breath/wheezing Albuterol (Proventil Neb Soln) 2.5 mg NEB QIDRT KELLIE Last Admin: 05/25/18 15:12 Dose: 2.5 mg Allopurinol (Zyloprim) 100 mg PO DAILY KELLIE Alprazolam (Xanax) 0.5 mg PO BID PRN PRN Reason: Anxiety Azithromycin (Zithromax) 250 mg PO DAILY KELLIE Benzonatate (Tessalon Perles) 100 mg PO TID PRN PRN Reason: Cough Last Admin: 05/25/18 13:33 Dose: 100 mg Guaifenesin (Mucinex) 600 mg PO TID [facility] Last Admin: 05/25/18 13:34 Dose: 600 mg Sodium Chloride (Normal Saline) 1,000 mls @ 125 mls/hr IV ASDIRECTED KELLIE Stop: 05/25/18 20:55 Last Admin: 05/25/18 13:38 Dose: 125 mls/hr Levothyroxine Sodium (Synthroid) 88 mcg PO DAILY@0730 KELLIE Magnesium Oxide (Magnesium Oxide) 400 mg PO DAILY KELLIE (Losartan Potassium [Cozaar] 100 Mg)*Pom * 100 mg PO DAILY KELLIE (Metoprolol Succinate [Toprol Xl ] 200 Mg)*Pom* 200 mg PO DAILY KELLIE (Omeprazole [ Omeprazole] 20 Mg)* Pom* 20 mg PO DAILY KELLIE Ondansetron HCl (Zofran Odt) 4 mg PO Q6H PRN PRN Reason: Nausea able to take PO Potassium Chloride (Klor-Con M20) 40 meq PO DAILY [facility] Prednisone (Prednisone) 20 mg PO BIDAC [facility] Last Admin: 05/25/18 15:53 Dose: 20 mg Sodium Chloride (Saline Flush) 10 ml FLUSH ASDIRECTED PRN PRN Reason: Keep Vein Open Last Admin: 05/25/18 10:30 Dose: 10 ml Spironolactone (Aldactone) 25 mg PO DAILY [facility] Labs: Laboratory Tests 05/25/18 05/25/18 05/25/18 Range/Units 08:43 08:43 08:45 WBC 5.7 (4.5-11.0) K/uL RBC 5.00 (3.30-5.50) M/uL Hgb 14.7 (12.0-15.0) g/dL Hct 44.5 (36.0-48.0) % MCV 89 (80-98) fL MCH 29 (27-31) pg MCHC 33 (32-36) % Plt Count 168 (150-400) K/uL Neut % (Auto) 69 H (36-66) % Lymph % (Auto) 16 L (24-44) % Tyler % (Auto) 15 H (2-6) % Eos % (Auto) 0 L (2-4) % Baso % (Auto) 1 (0-1) % PT 19.4 H (9.5-12.0) sec INR 1.82 H (0.80-1.20) Sodium 132 L (140-148) mmol/L Potassium 4.1 (3.6-5.2) mmol/L Chloride 97 L (100-108) mmol/L Carbon Dioxide 25 (21-32) mmol/L Anion Gap 14.1 H (5.0-14.0) mmol/L BUN 16 (7-18) mg/dL Creatinine 1.1 H (0.6-1.0) mg/dL Est Cr Clr Drug Dosing TNP Estimated GFR (MDRD) 48 L (>60) Glucose 108 H (74-106) mg/dL Calcium 9.5 (8.5-10.1) mg/dL Total Bilirubin 0.7 (0.2-1.0) mg/dL AST 23 (15-37) U/L ALT 34 (12-78) U/L Alkaline Phosphatase 83 D (46-116) U/L NT-Pro-B Natriuret Pep 1971 H (5-450) pg/mL Total Protein 6.6 (6.4-8.2) g/dL Albumin 3.2 L (3.4-5.0) g/dL Globulin 3.4 (2.3-3.5) g/dL Albumin/Globulin Ratio 0.9 L (1.2-2.2) Meds: Medications Generic Name Dose Route Start Last Admin Trade Name Freq PRN Reason Stop Dose Admin Acetaminophen 650 mg 05/25/18 12:54 Tylenol PO Q4H PRN Pain (Mild 1-3)/fever Albuterol 2.5 mg 05/25/18 12:54 Proventil Neb Soln NEB Q4H PRN Shortness Of Breath/wheezing Albuterol 2.5 mg 05/25/18 15:00 05/25/18 15:12 Proventil Neb Soln NEB 2.5 mg QIDRT KELLIE Administration Allopurinol 100 mg 05/26/18 09:00 Zyloprim PO DAILY KELLIE Alprazolam 0.5 mg 05/25/18 12:54 Xanax PO BID PRN Anxiety Azithromycin 250 mg 05/26/18 09:00 Zithromax PO DAILY KELLIE Benzonatate 100 mg 05/25/18 12:54 05/25/18 13:33 Tessalon Perles PO 100 mg TID PRN Administration Cough Guaifenesin 600 mg 05/25/18 14:00 05/25/18 13:34 Mucinex PO 600 mg TID KELLIE Administration Sodium Chloride 1,000 mls @ 125 mls/hr 05/25/18 12:54 05/25/18 13:38 Normal Saline IV 05/25/18 20:55 125 mls/hr ASDIRECTED KELLIE Administration Levothyroxine Sodium 88 mcg 05/26/18 07:30 Synthroid PO DAILY@0730 KELLIE Magnesium Oxide 400 mg 05/26/18 09:00 Magnesium Oxide PO DAILY KELLIE (Losartan Potassium 100 mg 05/26/18 09:00 [Cozaar] 100 Mg)*Pom PO * DAILY KELLIE (Metoprolol 200 mg 05/26/18 09:00 Succinate [Toprol Xl PO ] 200 Mg)*Pom* DAILY KELLIE (Omeprazole [ 20 mg 05/26/18 09:00 Omeprazole] 20 Mg)* PO Pom* DAILY KELLIE Ondansetron HCl 4 mg 05/25/18 12:54 Zofran Odt PO Q6H PRN Nausea able to take PO Potassium Chloride 40 meq 05/26/18 09:00 Klor-Con M20 PO DAILY KELLIE Prednisone 20 mg 05/25/18 16:30 05/25/18 15:53 Prednisone PO 20 mg BIDAC KELLIE Administration Sodium Chloride 10 ml 05/25/18 10:09 05/25/18 10:30 Saline Flush FLUSH 10 ml ASDIRECTED PRN Administration Keep Vein Open Spironolactone 25 mg 05/26/18 09:00 Aldactone PO DAILY KELLIE Discontinued Medications Generic Name Dose Route Start Last Admin Trade Name Freq PRN Reason Stop Dose Admin Albuterol 2.5 mg 05/25/18 08:26 05/25/18 08:37 Proventil Neb Soln NEB 05/25/18 08:27 2.5 mg ONETIME ONE Administration Azithromycin 500 mg 05/25/18 13:30 05/25/18 13:34 Zithromax PO 05/25/18 13:31 500 mg ONETIME ONE Administration Methylprednisolone Sodium Succinate 125 mg 05/25/18 10:09 05/25/18 10:29 Solu-Medrol IVPUSH 05/25/18 10:10 125 mg ONETIME ONE Administration Warfarin Sodium 5 mg 05/25/18 17:00 05/25/18 17:54 Coumadin PO 05/25/18 17:01 5 mg ONETIME ONE Administration - Radiology Interpretation Free Text/Narrative:: Chest x-ray was normal - Re-Assessments/Exams Free Text/Narrative Re-Assessment/Exam: 05/25/18 18:55 EKG which is not available at the time of this dictation showed no ischemic changes. This patient received an albuterol nebulizer treatment and I examined her afterwards. She said it didn't help any and she still continues to have the laryngeal noise on expiration. Assessment appears to be sort of like a equivalent of pursed lip breathing. She feels like she needs to be in the hospital. I spoke with Dr. Bernard and he will be down to see her within an hour or so. In the meantime I started her on the 125 mg of Solu-Medrol IV. Departure - Departure Time of Disposition: 18:57 Disposition: Refer to Observation Condition: Fair Clinical Impression: Acute bronchitis - Discharge Information - My Orders Last 24 Hours: My Active Orders 05/25/18 08:26 EKG 12 Lead [EK] Urgent 05/25/18 08:28 RT Aerosol Therapy [RC] ASDIRECTED 05/25/18 10:09 Sodium Chloride 0.9% [Saline Flush] 10 ml FLUSH ASDIRECTED PRN Saline Lock Insert [OM.PC] Urgent - Assessment/Plan Last 24 Hours: My Active Orders 05/25/18 08:26 EKG 12 Lead [EK] Urgent 05/25/18 08:28 RT Aerosol Therapy [RC] ASDIRECTED 05/25/18 10:09 Sodium Chloride 0.9% [Saline Flush] 10 ml FLUSH ASDIRECTED PRN Saline Lock Insert [OM.PC] Urgent
[2018-05-25] MEDS ORDERED: Sodium Chloride 0.9% 10 ML Syringe FLUSH PRN (10:09)
[2018-05-25] MEDS ORDERED: methylPREDNISolone Sodium Succinate 125 MG/2 ML SDV IVPUSH ONE (10:09)
--- NOTE | 2018-05-25 12:00 | PCM.HP ---
H&P History of Present Illness - General Date of Service: 05/25/18 Admit Problem/Dx: Admission Diagnosis/Problem Admission Diagnosis/Problem Bronchitis Source of Information: Patient, Family, Provider History Limitations: Reports: No Limitations - History of Present Illness Initial Comments - Free Text/Narative: Priscilla presents to the emergency room today with a chief complaint of cough, shortness of breath and not feeling well. She reports that that she's been struggling with sinus congestion for 2 weeks but over the past few days has had progressive shortness of breath as well as a cough that is intermittently productive for yellow or green sputum. She has diffuse myalgias, fatigue and malaise. She's measured temperatures as high as 101 at home. No obvious sick contacts. She was started on Bactrim 3 days ago but doesn't think this is been helping. This was started to help with a possible sinus infection. Appetite has been decreased but she has not had nausea or abdominal pain. She did develop some loose stools this morning. She has sinus congestion and tenderness in her frontal sinus. She feels a little short of breath but has not had any significant chest pain. Workup in the emergency room has been unremarkable other than some very mild wheezing. Chest x-ray is clear and labs are normal. Influenza testing was negative. She'll be admitted for observation and management of bronchitis. - Related Data Allergies/Adverse Reactions: Allergies Allergy/AdvReac Type Severity Reaction Status Date / Time Penicillins Allergy Mild Swelling Verified 05/10/18 08:06 celecoxib Allergy Other Verified 05/10/18 08:06 Home Medications: Home Meds Cholecalciferol (Vitamin D3) [Vitamin D3] 2,000 unit PO DAILY 01/08/13 [History] Levothyroxine [Synthroid] 88 mcg PO DAILY 01/08/13 [History] Potassium Chloride [Klor-Con M20] 40 meq PO DAILY 01/08/13 [History] Fluticasone Propionate [Flonase] 1 spray NASBOTH DAILY PRN 10/28/13 [History] Allopurinol 100 mg PO DAILY 01/24/14 [History] Furosemide [Lasix] 40 mg PO DAILY 02/23/14 [History] Losartan Potassium [Cozaar] 100 mg PO DAILY 02/23/14 [History] Warfarin Sodium [Jantoven] 5 mg PO DAILY 02/23/14 [History] Magnesium Oxide 400 mg PO DAILY 11/18/15 [History] Metoprolol Succinate [Toprol Xl] 200 mg PO DAILY 01/19/17 [History] ALPRAZolam [Xanax] 0.5 mg PO BID PRN 01/27/17 [History] Omeprazole 20 mg PO DAILY 05/09/18 [History] Spironolactone [Aldactone] 25 mg PO DAILY 05/09/18 [History] Past Medical History HEENT History: Reports: Allergic Rhinitis, Cataract, Hard of Hearing, Impaired Vision Cardiovascular History: Reports: Afib, Blood Clots/VTE/DVT, Hypertension Other Cardiovascular History: cardiac ablation 2013 Respiratory History: Reports: Sleep Apnea Gastrointestinal History: Reports: Cholelithiasis, Colon Polyp, Hemorrhoids, Irritable Bowel Syndrome, Other (See Below) Other Gastrointestinal History: diverticulitis Genitourinary History: Reports: None LVN History: Reports: Fibroids, Musculoskeletal History: Reports: Arthritis, Back Pain, Chronic, Fracture, Gout , Other (See Below) Other Musculoskeletal History: herniated disc Psychiatric History: Reports: Anxiety, Depression Endocrine/Metabolic History: Reports: Hypothyroidism, Obesity/BMI 30+, Other ( See Below) Other Endocrine/Metabolic History: thyroid disease Oncologic (Cancer) History: Reports: Breast - Infectious Disease History Infectious Disease History: Reports: Chicken Pox, Measles, Mumps - Past Surgical History HEENT Surgical History: Reports: Cataract Surgery, Tonsillectomy Cardiovascular Surgical History: Reports: Other (See Below) Other Cardiovascular Surgeries/Procedures: ablasion Respiratory Surgical History: Reports: None GI Surgical History: Reports: Cholecystectomy, Colonoscopy, Colostomy Female Surgical History: Reports: Breast Biopsy, Hysterectomy Endocrine Surgical History: Reports: None Musculoskeletal Surgical History: Reports: Knee Replacement Oncologic Surgical History: Reports: Biopsy of Breast, Lumpectomy Dermatological Surgical History: Reports: None Social & Family History - Family History Family Medical History: Unobtainable - Tobacco Use Smoking Status *Q: Never Smoker - Caffeine Use Caffeine Use: Reports: Coffee Other Caffeine Use: decaf - Alcohol Use Alcohol Use History: No - Recreational Drug Use Recreational Drug Use: No - Living Situation & Occupation Living situation: Reports: , with Spouse H&P Review of Systems - Review of Systems: Review Of Systems: See Below Free Text/Narrative: A complete 12 point review of systems was obtained. Pertinent positives and negatives are noted in the history of present illness. All other systems were reviewed and were negative except as noted. Exam - Exam Exam: See Below - Vital Signs Vital Signs: Last Vital Signs Temp 37.1 C 05/25/18 07:49 Pulse 88 05/25/18 07:49 Resp 18 05/25/18 07:49 BP 134/80 05/25/18 07:49 Pulse Ox - Exam Quality Assessment: No: Supplemental Oxygen General: Alert, Oriented, Cooperative. No: Mild Distress HEENT: Conjunctiva Clear, Posterior Pharynx Clear, Other (frontal sinus mildly warm to touch, not tender. Maxillary sinuses not warm or tender). No: Mucosa Moist & [place] (dry), Scleral Icterus Neck: Supple. No: Lymphadenopathy, Thyromegaly Lungs: Normal Respiratory Effort, Rhonchi (mild upper resp rhonchi), Wheezing ( mild end exp wheezing on left side) Cardiovascular: Regular Rate, Irregular Rhythm GI/Abdominal Exam: Normal Bowel Sounds, Soft, No Distention Back Exam: Normal Inspection, Full Range of Motion Extremities: No Pedal Edema. No: Increased Warmth Skin: Warm, Dry Neuro Extensive - Mental Status: Alert, Oriented x3, Normal Mood/Affect, Nl Response to Commands Neuro Extensive - Motor, Sensory, Reflexes: No: Dysarthria, Abnormal Motor, Tremor Psychiatric: Alert, Normal Affect - Patient Data Lab Results Last 24 hrs: Laboratory Results - last 24 hr 05/25/18 05/25/18 Range/Units 08:43 08:43 WBC 5.7 (4.5-11.0) K/uL RBC 5.00 (3.30-5.50) M/uL Hgb 14.7 (12.0-15.0) g/dL Hct 44.5 (36.0-48.0) % MCV 89 (80-98) fL MCH 29 (27-31) pg MCHC 33 (32-36) % Plt Count 168 (150-400) K/uL Neut % (Auto) 69 H (36-66) % Lymph % (Auto) 16 L (24-44) % Hale % (Auto) 15 H (2-6) % Eos % (Auto) 0 L (2-4) % Baso % (Auto) 1 (0-1) % Sodium 132 L (140-148) mmol/L Potassium 4.1 (3.6-5.2) mmol/L Chloride 97 L (100-108) mmol/L Carbon Dioxide 25 (21-32) mmol/L Anion Gap 14.1 H (5.0-14.0) mmol/L BUN 16 (7-18) mg/dL Creatinine 1.1 H (0.6-1.0) mg/dL Est Cr Clr Drug Dosing TNP Estimated GFR (MDRD) 48 L (>60) Glucose 108 H (74-106) mg/dL Calcium 9.5 (8.5-10.1) mg/dL Total Bilirubin 0.7 (0.2-1.0) mg/dL AST 23 (15-37) U/L ALT 34 (12-78) U/L Alkaline Phosphatase 83 D (46-116) U/L NT-Pro-B Natriuret Pep 1971 H (5-450) pg/mL Total Protein 6.6 (6.4-8.2) g/dL Albumin 3.2 L (3.4-5.0) g/dL Globulin 3.4 (2.3-3.5) g/dL Albumin/Globulin Ratio 0.9 L (1.2-2.2) Result Diagrams: 05/25/18 08:43 05/25/18 08:43 Shaheen Results Last 24 hrs: Microbiology 05/25/18 11:40 Influenza Type A Antigen Screen - Final Nasal, Unspecified NEGATIVE INFLUENZA A VIRUS AG Influenza Type B Antigen Screen - Final NEGATIVE INFLUENZA B VIRUS AG Imaging Impressions Last 24 hrs: CXR - images personally reviewed - lungs are clear with no mass, infiltrate or effusion EKG INTERPRETATION EKG Date: 05/25/18 Rhythm: A-Fib Rate (Beats/Min): 95 [place]: Normal P-Wave: Variable QRS: Normal ST-T: Normal QT: Normal Comparison: No Change *Q Meaningful Use (ADM) - VTE Risk Assess *Q Each Risk Factor Represents 1 Point: Obesity ( BMI > 25 kg/m2), Serious lung disease including pneumonia Total Score 1 Point Risk Factors: 2 Each Risk Factor Represents 2 Points: Malignancy (present or previous) Total Score 2 Point Risk Factors: 2 Each Risk Factor Represents 3 Points: Age 75 Years or Greater Total Score 3 Point Risk Factors: 3 Each Risk Factor Represents 5 Points: None Total Score 5 Point Risk Factors: 0 Venous Thromboembolism Risk Factor Score *Q: 7 - Problem List (1) Bronchitis SNOMED Code(s): 52387424 ICD Code: J40 - BRONCHITIS, NOT SPECIFIED ACUTE OR CHRONIC Status: Acute Current Visit: Yes (2) Chronic atrial fibrillation SNOMED Code(s): 040099682 ICD Code: I48.2 - CHRONIC ATRIAL FIBRILLATION Status: Chronic Current Visit: Yes Problem List Initiated/Reviewed/Updated: Yes Orders Last 24hrs: Active Orders 24 hr Category Date Time Status Patient Status Manage Transfer [TRANSFER] Routine ADT 05/25/18 11:49 Ordered EKG Documentation Completion [RC] ASDIRECTED Care 05/25/18 08:28 Active RT Aerosol Therapy [RC] ASDIRECTED Care 05/25/18 08:28 Active INR,PT,PROTHROMBIN TIME [COAG] Urgent Lab 05/25/18 08:45 Received Sodium Chloride 0.9% [Saline Flush] Med 05/25/18 10:09 Active 10 ml FLUSH ASDIRECTED PRN Saline Lock Insert [OM.PC] Urgent Oth 05/25/18 10:09 Ordered Resuscitation Status Routine Resus Stat 05/25/18 11:51 Ordered EKG 12 Lead [EK] Urgent Ther 05/25/18 08:26 Ordered Medication Orders Sodium Chloride (Saline Flush) 10 ml FLUSH ASDIRECTED PRN PRN Reason: Keep Vein Open Last Admin: 05/25/18 10:30 Dose: 10 ml Assessment/Plan Comment:: ASSESSMENT AND PLAN - Acute bronchitis - patient has shortness of breath and off with mild wheezing. Chest x-ray is clear. Not febrile and white count is normal. Unclear if virus or bacteria but I will cover her with azithromycin because of progression of symptoms. She is not currently hypoxic. -azithromycin 500 mg now and 250 mg daily -Prednisone twice daily with meals starting this evening -Nebulizers -Mucinex -Symptomatic management of cough Chronic atrial fibrillation - currently rate controlled. She is chronically anticoagulated. -Continue rate control and anticoagulation Maintenance issues - - DVT prophylaxis - warfarin - GI prophylaxis - PPI - Nutrition - regular diet - Vazquez catheter - not indicated CODE STATUS - full code Admission justification - patient will be referred observation status for antibiotic and steroid initiation and symptomatic management Disposition - I would anticipate discharge home tomorrow Primary care physician - Dr Horacio Bernard M.D.
[2018-05-25] MEDS ORDERED: Benzonatate 100 MG Cap PO PRN (12:54)
[2018-05-25] MEDS ORDERED: Albuterol 0.083% 2.5 MG/3 ML Neb Soln NEB PRN (12:54)
[2018-05-25] MEDS ORDERED: ALPRAZolam 0.5 MG Tab PO PRN (12:54)
[2018-05-25] MEDS ORDERED: Sodium Chloride 0.9% 1,000 ML IV SCH (12:54)
[2018-05-25] MEDS ORDERED: Acetaminophen 325 MG Tab PO PRN (12:54)
[2018-05-25] MEDS ORDERED: Ondansetron 4 MG Tab.DIS PO PRN (12:54)
[2018-05-25] MEDS ORDERED: Azithromycin 250 MG Tab PO ONE (13:30)
[2018-05-25] MEDS: guaiFENesin 600 MG Tab.ER PO SCH ×2 (13:34→20:47)
[2018-05-25] MEDS: Albuterol 0.083% 2.5 MG/3 ML Neb Soln NEB SCH ×2 (15:12→20:49)
[2018-05-25] MEDS: predniSONE 20 MG Tab PO SCH (15:53)
[2018-05-25] MEDS ORDERED: Warfarin 5 MG (PTOM) PO ONE (17:00)
[2018-05-26] MEDS: Albuterol 0.083% 2.5 MG/3 ML Neb Soln NEB SCH ×2 (07:17→11:14)
[2018-05-26 07:23] VITALS: BP 132/73
[2018-05-26] MEDS ORDERED: Levothyroxine 88 MCG Tab PO SCH (07:30)
[2018-05-26] MEDS: predniSONE 20 MG Tab PO SCH (08:07)
[2018-05-26] MEDS: guaiFENesin 600 MG Tab.ER PO SCH (08:11)
[2018-05-26] MEDS ORDERED: LOSARTAN POTASSIUM 100 MG PO SCH (09:00)
[2018-05-26] MEDS ORDERED: MAGNESIUM OXIDE 400 MG PO SCH (09:00)
[2018-05-26] MEDS ORDERED: Spironolactone 25 MG Tab PO SCH (09:00)
[2018-05-26] MEDS ORDERED: Azithromycin 250 MG Tab PO SCH (09:00)
[2018-05-26] MEDS ORDERED: Potassium Chloride 20 MEQ Tab.ER*POM PO SCH (09:00)
[2018-05-26] MEDS ORDERED: Allopurinol 100 MG Tab*POM PO SCH (09:00)
[2018-05-26] MEDS ORDERED: METOPROLOL SUCCINATE 200 MG PO SCH (09:00)
[2018-05-26] MEDS ORDERED: OMEPRAZOLE 20 MG PO SCH (09:00)
--- NOTE | 2018-05-26 10:08 | PCM.DCSUM1 ---
Discharge Summary - Hospital Course Brief History: 78-year-old female with history of compensated congestive heart failure, chronic atrial fibrillation who presented with cough, shortness of breath and myalgias. She was admitted for management of bronchitis. Diagnosis: Stroke: No - Discharge Data Discharge Date: 05/26/18 Discharge Disposition: Home, Self-Care 01 Condition: Good - Discharge Diagnosis/Problem(s) (1) Bronchitis SNOMED Code(s): 45213402 ICD Code: J40 - BRONCHITIS, NOT SPECIFIED ACUTE OR CHRONIC Status: Acute Current Visit: Yes (2) Chronic atrial fibrillation SNOMED Code(s): 009139762 ICD Code: I48.2 - CHRONIC ATRIAL FIBRILLATION Status: Chronic Current Visit: Yes - Patient Summary/Data Hospital Course: Priscilla presented to the emergency room with subjective fevers, cough, shortness of breath and weakness. Work up in the emergency room is fairly unremarkable but given her progression of symptoms over the past couple of days she was admitted for observation and initiation of antibiotics and steroids. She was started on a azithromycin and steroids for presumed bronchitis. Overnight following admission there were no acute difficulties. She has not required supplemental oxygen. She has not had any fevers. She is feeling better with the above treatments as well as guaifenesin. Energy and appetite have improved but are not back to baseline. Still congested but better today than yesterday. She feels comfortable going home at this point. She will be on 5 days of prednisone at 5 days of azithromycin with about 3 days of both remaining at the time of discharge. 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 She will follow-up in a few days if symptoms do not continue to get better or sooner if they worsen. Acute bronchitis is suspected with bacterial source suspected but cannot completely rule out viral infection either. Clinically she is improved with her cares in the hospital and is safe for discharge home at this time. - Patient Instructions Diet: Regular Diet as Tolerated Activity: As Tolerated Showering/Bathing: May Shower Notify Provider of: Fever, Increased Pain, Nausea and/or Vomiting Other/Special Instructions: 1. You were were in the hospital for management of bronchitis. I suspect the infection was due to a bacteria and I do recommend additional antibiotic therapy. You should take azithromycin 250 mg once daily for 3 more days. Your next dose is due tomorrow morning. I also recommend additional dosing with prednisone. This is an anti-inflammatory that will help relieve airway inflammation. You should take 20 mg twice daily, once with breakfast and once with supper, for 7 more doses. Your next dose is due tonight. I would also recommend that you take guaifenesin (Mucinex) 600 mg 3 times daily until your symptoms improve, probably about 3-5 days. This is an [id number] medication available at all pharmacies locally. You should stop taking the Bactrim that was prescribed by Dr. Leonard. 2. Please take 1/2 tablet of your warfarin (2.5 mg) for the next 4 days while you are on prednisone and antibiotics. 3. Continue your other home medications as previously prescribed. 4. Follow up on Monday or to ensure that you are continuing to improve or sooner if symptoms worsen after hospital discharge. 5. Seek medical attention if you fever greater than 101, severe shortness of breath or if you develop chest pain/pressure. - Discharge Plan *PRESCRIPTION DRUG MONITORING PROGRAM REVIEWED*: Not Applicable *COPY OF PRESCRIPTION DRUG MONITORING REPORT IN PATIENT MANINDER: Not Applicable Prescriptions/Med Rec: Azithromycin [Zithromax] 250 mg PO DAILY #3 tablet predniSONE 20 mg PO BIDAC #7 tablet Home Medications: Home Meds Cholecalciferol (Vitamin D3) [Vitamin D3] 2,000 unit PO DAILY 01/08/13 [History] Levothyroxine [Synthroid] 88 mcg PO DAILY 01/08/13 [History] Potassium Chloride [Klor-Con M20] 40 meq PO DAILY 01/08/13 [History] Fluticasone Propionate [Flonase] 1 spray NASBOTH DAILY PRN 10/28/13 [History] Allopurinol 100 mg PO DAILY 01/24/14 [History] Furosemide [Lasix] 40 mg PO DAILY 02/23/14 [History] Losartan Potassium [Cozaar] 100 mg PO DAILY 02/23/14 [History] Warfarin Sodium [Jantoven] 5 mg PO DAILY 02/23/14 [History] Magnesium Oxide 400 mg PO DAILY 11/18/15 [History] Metoprolol Succinate [Toprol Xl] 200 mg PO DAILY 01/19/17 [History] ALPRAZolam [Xanax] 0.5 mg PO BID PRN 01/27/17 [History] Omeprazole 20 mg PO DAILY 05/09/18 [History] Spironolactone [Aldactone] 25 mg PO DAILY 05/09/18 [History] Azithromycin [Zithromax] 250 mg PO DAILY #3 tablet 05/26/18 [Rx] predniSONE 20 mg PO BIDAC #7 tablet 05/26/18 [Rx] Oxygen Therapy Mode: Room Air Patient Handouts: Azithromycin tablets, Acute Bronchitis, Adult Referrals: Reggie Leonard MD [Primary Care Provider] - (5 days - f/u if symptoms do not continue to get better or sooner if they worsen) - Discharge Summary/Plan Comment DC Time >30 min.: No - Patient Data Vitals - Most Recent: Last Vital Signs Temp 36.8 C 05/26/18 07:11 Pulse 89 05/26/18 07:11 Resp 17 05/26/18 07:11 BP 132/73 05/26/18 07:11 Pulse Ox 98 05/26/18 07:11 Weight - Most Recent: 89.993 kg I&O - Last 24 hours: Intake & Output 05/25/18 05/26/18 05/26/18 22:59 06:59 14:59 Intake Total 780 Output Total 300 Balance 480 Lab Results - Last 24 hrs: Laboratory Results - last 24 hr 05/25/18 05/26/18 05/26/18 Range/Units 08:45 05:58 05:58 PT 19.4 H 26.4 H (9.5-12.0) sec INR 1.82 H 2.53 H (0.80-1.20) Sodium 133 L (140-148) mmol/L Potassium 4.3 (3.6-5.2) mmol/L Chloride 101 (100-108) mmol/L Carbon Dioxide 21 (21-32) mmol/L Anion Gap 15.3 H (5.0-14.0) mmol/L BUN 20 H (7-18) mg/dL Creatinine 1.0 (0.6-1.0) mg/dL Est Cr Clr Drug Dosing 44.10 mL/min Estimated GFR (MDRD) 54 L (>60) Glucose 192 H (74-106) mg/dL Calcium 9.7 (8.5-10.1) mg/dL EDYTA Results - Last 24 hrs: Microbiology 05/25/18 11:40 Influenza Type A Antigen Screen - Final Nasal, Unspecified NEGATIVE INFLUENZA A VIRUS AG Influenza Type B Antigen Screen - Final NEGATIVE INFLUENZA B VIRUS AG Med Orders - Current: Current Medications Acetaminophen (Tylenol) 650 mg PO Q4H PRN PRN Reason: Pain (Mild 1-3)/fever Albuterol (Proventil Neb Soln) 2.5 mg NEB Q4H PRN PRN Reason: Shortness Of Breath/wheezing Albuterol (Proventil Neb Soln) 2.5 mg NEB QIDRT ON LICENSE OF [facility] Last Admin: 05/26/18 07:17 Dose: 2.5 mg Allopurinol (Zyloprim) 100 mg PO DAILY ON LICENSE OF [facility] Last Admin: 05/26/18 08:12 Dose: 100 mg Alprazolam (Xanax) 0.5 mg PO BID PRN PRN Reason: Anxiety Azithromycin (Zithromax) 250 mg PO DAILY ON LICENSE OF [facility] Last Admin: 05/26/18 08:11 Dose: 250 mg Benzonatate (Tessalon Perles) 100 mg PO TID PRN PRN Reason: Cough Last Admin: 05/25/18 13:33 Dose: 100 mg Guaifenesin (Mucinex) 600 mg PO TID ON LICENSE OF [facility] Last Admin: 05/26/18 08:11 Dose: 600 mg Levothyroxine Sodium (Synthroid) 88 mcg PO DAILY@0730 ON LICENSE OF [facility] Magnesium Oxide (Magnesium Oxide) 400 mg PO DAILY ON LICENSE OF [facility] Last Admin: 05/26/18 08:08 Dose: 400 mg (Losartan Potassium [Cozaar] 100 Mg)*Pom * 100 mg PO DAILY ON LICENSE OF [facility] Last Admin: 05/26/18 08:10 Dose: 100 mg (Metoprolol Succinate [Toprol Xl ] 200 Mg)*Pom* 200 mg PO DAILY ON LICENSE OF [facility] Last Admin: 05/26/18 08:10 Dose: 200 mg (Omeprazole [ Omeprazole] 20 Mg)* Pom* 20 mg PO DAILY ON LICENSE OF [facility] Ondansetron HCl (Zofran Odt) 4 mg PO Q6H PRN PRN Reason: Nausea able to take PO Potassium Chloride (Klor-Con M20) 40 meq PO DAILY ON LICENSE OF [facility] Last Admin: 05/26/18 08:08 Dose: 40 meq [facility]Prednisone) [facility] Last Admin: 05/26/18 08:07 Dose: 20 mg Sodium Chloride (Saline Flush) 10 ml FLUSH ASDIRECTED PRN PRN Reason: Keep Vein Open Last Admin: 05/25/18 10:30 Dose: 10 ml Spironolactone (Aldactone) 25 mg PO DAILY ON LICENSE OF [facility] Last Admin: 05/26/18 08:08 Dose: 25 mg Discontinued Medications Albuterol (Proventil Neb Soln) 2.5 mg NEB ONETIME ONE Stop: 05/25/18 08:27 Last Admin: 05/25/18 08:37 Dose: 2.5 mg Azithromycin (Zithromax) 500 mg PO ONETIME ONE Stop: 05/25/18 13:31 Last Admin: 05/25/18 13:34 Dose: 500 mg Sodium Chloride (Normal Saline) 1,000 mls @ 125 mls/hr IV ASDIRECTED ON LICENSE OF [facility] Stop: 05/25/18 20:55 Last Admin: 05/25/18 13:38 Dose: 125 mls/hr Methylprednisolone Sodium Succinate (Solu-Medrol) 125 mg IVPUSH ONETIME ONE Stop: 05/25/18 10:10 Last Admin: 05/25/18 10:29 Dose: 125 mg Warfarin Sodium (Coumadin) 5 mg PO ONETIME ONE Stop: 05/25/18 17:01 Last Admin: 05/25/18 17:54 Dose: 5 mg - Exam Quality Assessment: Denies: Supplemental Oxygen General: Reports: Alert, Oriented, Cooperative, No Acute Distress Lungs: Reports: Normal Respiratory Effort, Rhonchi (mild upper resp rhonchi ) Cardiovascular: Reports: Regular Rate, Regular Rhythm GI/Abdominal Exam: Soft, No Distention Extremities: No Pedal Edema Psy/Mental Status: Reports: Alert, Normal Affect
== END 2018-05-26 12:25 | disposition home or self-care (01) ==
LOC: JP.ED 07:24 → JP.MS 11:49
PROVIDERS: ADMIT Internal Medicine; ATTEND Internal Medicine
DX: J20.9 Acute bronchitis, unspecified (principal); I11.0 Hypertensive heart disease with heart failure; I50.9 Heart failure, unspecified; I48.2 Chronic atrial fibrillation; E03.9 Hypothyroidism, unspecified; F41.9 Anxiety disorder, unspecified; F32.9 Major depressive disorder, single episode, unspecified; Z88.0 Allergy status to penicillin; Z88.6 Allergy status to analgesic agent; Z79.01 Long term (current) use of anticoagulants; Z79.52 Long term (current) use of systemic steroids; Z79.899 Other long term (current) drug therapy
CPT/HCPCS: 36415; 71046; 80048; 80053; 83880; 85025; 85610; 87804; 93005; 94640; 96374; 99285; A9270; J2930; J7030; 93010

== ENCOUNTER 2019-11-10 10:21 | Emergency (ER) | payer MEDICARE ==
[2019-11-10] MEDS ORDERED: Ondansetron 4 MG Tab.DIS PO ONE (10:30)
[2019-11-10 10:54] VITALS: BP 145/85; PULSE 130
[2019-11-10] MEDS ORDERED: Ondansetron 4 MG/2 ML SDV IVPUSH ONE (11:10)
[2019-11-10] MEDS ORDERED: Sodium Chloride 0.9% 1,000 ML IV SCH (11:15)
--- NOTE | 2019-11-10 11:18 | EDM.PDOC ---
ED HPI GENERAL MEDICAL PROBLEM - General Chief Complaint: General Stated Complaint: NAUSEOUS Time Seen by Provider: 11/10/19 10:52 Source of Information: Reports: Patient History Limitations: Reports: No Limitations - History of Present Illness INITIAL COMMENTS - FREE TEXT/NARRATIVE: 79 yo female with extensive medical hx presents to the ER with nausea and general "i just don't feel good" overall she has not been feeling well for the month but woke this AM at 0300 with nausea and the sensation that she needed to have a bowel movement. She has been passing gas and her last BM was yesterday. She has hx of colon resection and takes miralax on a daily basis. She had UTI earlier this month and has had two courses of antibiotics. initially tx with macrobid and this caused GI upset she was then changed to another antibiotic. She is scheduled for a cystoscope next week. afebrile. decreased appetite. denies Pain Score (Numeric/FACES): 0 - Related Data Allergies Allergy/AdvReac Type Severity Reaction Status Date / Time Penicillins Allergy Mild Swelling Verified 11/10/19 10:37 celecoxib Allergy Other Verified 11/10/19 10:37 Home Meds: Home Meds Cholecalciferol (Vitamin D3) [Vitamin D3] 2,000 unit PO DAILY 01/08/13 [History] Levothyroxine [Synthroid] 88 mcg PO DAILY 01/08/13 [History] Potassium Chloride [Klor-Con M20] 40 meq PO DAILY 01/08/13 [History] Fluticasone Propionate [Flonase] 1 spray NASBOTH DAILY PRN 10/28/13 [History] allopurinoL [Allopurinol] 100 mg PO DAILY 01/24/14 [History] Furosemide [Lasix] 40 mg PO DAILY PRN 02/23/14 [History] Losartan Potassium [Cozaar] 100 mg PO DAILY 02/23/14 [History] Warfarin Sodium [Jantoven] 5 mg PO DAILY 02/23/14 [History] Magnesium Oxide 400 mg PO DAILY 11/18/15 [History] Metoprolol Succinate [Toprol Xl] 200 mg PO DAILY 01/19/17 [History] ALPRAZolam [Xanax] 0.5 mg PO BID PRN 01/27/17 [History] Omeprazole 20 mg PO DAILY 05/09/18 [History] Spironolactone [Aldactone] 25 mg PO DAILY 05/09/18 [History] Ondansetron [Ondansetron ODT] 4 mg PO Q6H PRN 11/10/19 [History] Past Medical History HEENT History: Reports: Allergic Rhinitis, Cataract, Hard of Hearing, Impaired Vision Cardiovascular History: Reports: Afib, Blood Clots/VTE/DVT, Heart Failure, Hypertension Other Cardiovascular History: cardiac ablation 2013 Respiratory History: Reports: Sleep Apnea, Other (See Below) Other Respiratory History: C pap Gastrointestinal History: Reports: Cholelithiasis, Colon Polyp, Hemorrhoids, Irritable Bowel Syndrome, Other (See Below) Other Gastrointestinal History: diverticulitis Genitourinary History: Reports: Other (See Below) Other Genitourinary History: bladder tumor 2004 hx of cystitis 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: Fibroids, Musculoskeletal History: Reports: Arthritis, Back Pain, Chronic, Fracture, Gout, Other (See Below) Other Musculoskeletal History: herniated disc Psychiatric History: Reports: Anxiety, Depression Endocrine/Metabolic History: Reports: Hypothyroidism, Obesity/BMI 30+, Other (See Below) Other Endocrine/Metabolic History: thyroid disease Oncologic (Cancer) History: Reports: Breast - Infectious Disease History Infectious Disease History: Reports: Chicken Pox, Measles - Past Surgical History HEENT Surgical History: Reports: Cataract Surgery, Tonsillectomy Cardiovascular Surgical History: Reports: Other (See Below) Other Cardiovascular Surgeries/Procedures: ablasion GI Surgical History: Reports: Cholecystectomy, Colonoscopy, Colostomy Female Surgical History: Reports: Breast Biopsy, Hysterectomy, Other (See Below) Other Female Surgeries/Procedures: bladder tumor removal 2004 Endocrine Surgical History: Reports: None Musculoskeletal Surgical History: Reports: Knee Replacement Oncologic Surgical History: Reports: Biopsy of Breast, Lumpectomy Social & Family History - Family History Family Medical History: Unobtainable - Tobacco Use Smoking Status *Q: Never Smoker Second Hand Smoke Exposure: No - Caffeine Use Caffeine Use: Reports: Coffee Other Caffeine Use: decaf - Recreational Drug Use Recreational Drug Use: No - Living Situation & Occupation Living situation: Reports: , with Spouse ED ROS GENERAL - Review of Systems Review Of Systems: See Below Constitutional: Reports: Malaise, Fatigue. Denies: Fever, Chills HEENT: Denies: Sinus Problem Respiratory: Denies: Shortness of Breath, Wheezing Cardiovascular: Denies: Chest Pain GI/Abdominal: Reports: Nausea. Denies: Diarrhea ED EXAM, GENERAL - Physical Exam Exam: See Below Exam Limited By: No Limitations General Appearance: Alert, WD/WN, No Apparent Distress Head: Atraumatic, Normocephalic Respiratory/Chest: No Respiratory Distress, Lungs Clear, Normal Breath Sounds. No: Crackles, Rhonchi, Wheezing Cardiovascular: Normal Peripheral Pulses, No Edema, No Murmur, No Rub, Irregularly Irregular GI/Abdominal: Normal Bowel Sounds, Soft, Non-Tender Neurological: Alert, Oriented Psychiatric: Normal Affect, Normal Mood Skin Exam: Warm, Dry, Intact Course - Vital Signs Last Recorded V/S: Last Vital Signs Temp 36.6 C 11/10/19 10:53 Pulse 130 H 11/10/19 10:53 Resp 17 11/10/19 10:53 BP 145/85 H 11/10/19 10:53 Pulse Ox 99 11/10/19 10:53 - Orders/Labs/Meds Orders: Active Orders 24 hr Category Date Time Status Cardiac Monitoring [RC] .As Directed Care 11/10/19 11:11 Active EKG Documentation Completion [RC] ASDIRECTED Care 11/10/19 11:12 Active Sodium Chloride 0.9% [Normal Saline] 1,000 ml Med 11/10/19 11:15 Active IV ASDIRECTED EKG 12 Lead [EK] Stat Ther 11/10/19 11:12 Ordered Medication Orders Sodium Chloride (Normal Saline) 1,000 mls @ 500 mls/hr IV ASDIRECTED KELLIE Last Admin: 11/10/19 11:45 Dose: 500 mls/hr Documented by: WILLIE Labs: Laboratory Tests 11/10/19 11/10/19 11/10/19 Range/Units 11:39 11:39 11:39 WBC 8.9 (4.5-11.0) K/uL RBC 5.06 (3.30-5.50) M/uL Hgb 15.3 H (12.0-15.0) g/dL Hct 45.3 (36.0-48.0) % MCV 90 (80-98) fL MCH 30 (27-31) pg MCHC 34 (32-36) % Plt Count 256 (150-400) K/uL Neut % (Auto) 80 H (36-66) % Lymph % (Auto) 11 L (24-44) % [place] % (Auto) 8 H (2-6) % Eos % (Auto) 1 L (2-4) % Baso % (Auto) 1 (0-1) % Sodium 130 L (140-148) mmol/L Potassium 5.0 (3.6-5.2) mmol/L Chloride 96 L (100-108) mmol/L Carbon Dioxide 25 (21-32) mmol/L Anion Gap 14.0 (5.0-14.0) mmol/L BUN 19 H (7-18) mg/dL Creatinine 1.2 H (0.6-1.0) mg/dL Est Cr Clr Drug Dosing 36.17 mL/min Estimated GFR (MDRD) 43 L (>60) Glucose 128 H (74-106) mg/dL Calcium 9.8 (8.5-10.1) mg/dL Troponin I < 0.017 (0.000-0.056) ng/mL Meds: Medications Generic Name Dose Route Start Last Admin Trade Name Freq PRN Reason Stop Dose Admin Sodium Chloride 1,000 mls @ 500 mls/hr 11/10/19 11:15 11/10/19 11:45 Normal Saline IV 500 mls/hr ASDIRECTED KELLIE Administration Discontinued Medications Generic Name Dose Route Start Last Admin Trade Name Freq PRN Reason Stop Dose Admin Ondansetron HCl 4 mg 11/10/19 10:30 Zofran Odt PO 11/10/19 10:31 ONETIME ONE Ondansetron HCl 4 mg 11/10/19 11:10 11/10/19 11:47 Zofran IVPUSH 11/10/19 11:11 4 mg ONETIME ONE Administration - Re-Assessments/Exams Free Text/Narrative Re-Assessment/Exam: 11/10/19 13:13 able to tolerate crackers this did improve her nausea. heart rate with fluids and relaxation 11/10/19 13:14 Departure - Departure Time of Disposition: 13:13 Disposition: Home, Self-Care 01 Condition: Good Clinical Impression: Hyponatremia, Nausea - Discharge Information *PRESCRIPTION DRUG MONITORING PROGRAM REVIEWED*: Not Applicable *COPY OF PRESCRIPTION DRUG MONITORING REPORT IN PATIENT MANINDER: Not Applicable Instructions: Nausea and Vomiting, Adult, [id number] Referrals: PCP,None [Primary Care Provider] - Forms: ED Department Discharge Additional Instructions: advance diet as tolerated add 1 quart of gatorade per day your sodium was low today follow-up with primary care if you are not feeling better by mid week Sepsis Event Note (ED) - Evaluation Sepsis Screening Result: No Definite Risk - Focused Exam Vital Signs: Vital Signs Temp Pulse Resp BP Pulse Ox 11/10/19 10:53 36.6 C 130 H 17 145/85 H 99 - My Orders Last 24 Hours: My Active Orders 11/10/19 11:11 Cardiac Monitoring [RC] .As Directed 11/10/19 11:12 EKG Documentation Completion [RC] ASDIRECTED EKG 12 Lead [EK] Stat 11/10/19 11:15 Sodium Chloride 0.9% [Normal Saline] 1,000 ml IV ASDIRECTED - Assessment/Plan Last 24 Hours: My Active Orders 11/10/19 11:11 Cardiac Monitoring [RC] .As Directed 11/10/19 11:12 EKG Documentation Completion [RC] ASDIRECTED EKG 12 Lead [EK] Stat 11/10/19 11:15 Sodium Chloride 0.9% [Normal Saline] 1,000 ml IV ASDIRECTED
== END 2019-11-10 13:38 | disposition home or self-care (01) ==
LOC: JP.ED 10:21
DX: E87.1 Hypo-osmolality and hyponatremia (principal); R11.0 Nausea; I11.0 Hypertensive heart disease with heart failure; I50.9 Heart failure, unspecified; I48.91 Unspecified atrial fibrillation; E03.9 Hypothyroidism, unspecified; E66.9 Obesity, unspecified; M10.9 Gout, unspecified; F41.9 Anxiety disorder, unspecified; F32.9 Major depressive disorder, single episode, unspecified; Z88.0 Allergy status to penicillin; Z88.1 Allergy status to other antibiotic agents; Z79.01 Long term (current) use of anticoagulants; Z79.899 Other long term (current) drug therapy
CPT/HCPCS: 36415; 80048; 84484; 85025; 93005; 96361; 96374; 99283; J2405; J7030; 93010

== ENCOUNTER 2019-12-02 14:59 | Emergency (ER) | payer MEDICARE ==
--- NOTE | 2019-12-02 15:18 | EDM.PDOC ---
ED HPI GENERAL MEDICAL PROBLEM - General Chief Complaint: Abdominal Pain Stated Complaint: UPPER ABD PAIN Time Seen by Provider: 12/02/19 15:31 Source of Information: Reports: Patient History Limitations: Reports: No Limitations - History of Present Illness INITIAL COMMENTS - FREE TEXT/NARRATIVE: pt arrived feeling nauseated and doing alot of belching. She has been awake alot of the nite because of the pain. She has a history of constipation and has just increased her fiber. She did have a Bm this am. She has been very stressed. She has just moved from her home where they lived for 46 years. She states her is getting some memory problems. They are in an apartment and she hates it. She has been using the prilosec for the past 3 days. Onset: Gradual, Other ( These episodes have been happening frequently) Duration: Week(s): Location: Reports: Abdomen Associated Symptoms: Reports: Loss of Appetite, Other (pain in epigastric area.) - Related Data Allergies Allergy/AdvReac Type Severity Reaction Status Date / Time Penicillins Allergy Mild Swelling Verified 12/02/19 15:32 celecoxib Allergy Other Verified 12/02/19 15:32 Home Meds: Home Meds Cholecalciferol (Vitamin D3) [Vitamin D3] 2,000 unit PO DAILY 01/08/13 [History] Levothyroxine [Synthroid] 88 mcg PO DAILY 01/08/13 [History] Potassium Chloride [Klor-Con M20] 40 meq PO DAILY 01/08/13 [History] Fluticasone Propionate [Flonase] 1 spray NASBOTH DAILY PRN 10/28/13 [History] allopurinoL [Allopurinol] 100 mg PO DAILY 01/24/14 [History] Furosemide [Lasix] 40 mg PO DAILY PRN 02/23/14 [History] Losartan Potassium [Cozaar] 100 mg PO DAILY 02/23/14 [History] Warfarin Sodium [Jantoven] 5 mg PO DAILY 02/23/14 [History] Magnesium Oxide 400 mg PO DAILY 11/18/15 [History] Metoprolol Succinate [Toprol Xl] 200 mg PO DAILY 01/19/17 [History] ALPRAZolam [Xanax] 0.5 mg PO BID PRN 01/27/17 [History] Omeprazole 20 mg PO DAILY 05/09/18 [History] Spironolactone [Aldactone] 25 mg PO DAILY 05/09/18 [History] Ondansetron [Ondansetron ODT] 4 mg PO Q6H PRN 11/10/19 [History] Past Medical History HEENT History: Reports: Allergic Rhinitis, Cataract, Hard of Hearing, Impaired Vision Cardiovascular History: Reports: Afib, Blood Clots/VTE/DVT, Heart Failure, Hypertension Other Cardiovascular History: cardiac ablation 2013 Respiratory History: Reports: Sleep Apnea, Other (See Below) Other Respiratory History: C pap Gastrointestinal History: Reports: Cholelithiasis, Colon Polyp, Hemorrhoids, Irritable Bowel Syndrome, Other (See Below) Other Gastrointestinal History: diverticulitis Genitourinary History: Reports: Other (See Below) Other Genitourinary History: bladder tumor 2004 hx of cystitis 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: 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, Musculoskeletal History: Reports: Arthritis, Back Pain, Chronic, Fracture, Gout, Other (See Below) Other Musculoskeletal History: herniated disc Psychiatric History: Reports: Anxiety, Depression Endocrine/Metabolic History: Reports: Hypothyroidism, Obesity/BMI 30+, Other (See Below) Other Endocrine/Metabolic History: thyroid disease Oncologic (Cancer) History: Reports: Breast - Infectious Disease History Infectious Disease History: Reports: Chicken Pox, Measles - Past Surgical History HEENT Surgical History: Reports: Cataract Surgery, Tonsillectomy Cardiovascular Surgical History: Reports: Other (See Below) Other Cardiovascular Surgeries/Procedures: ablasion GI Surgical History: Reports: Cholecystectomy, Colonoscopy, Colostomy Female Surgical History: Reports: Breast Biopsy, Hysterectomy, Other (See Below) Other Female Surgeries/Procedures: bladder tumor removal 2004 Endocrine Surgical History: Reports: None Musculoskeletal Surgical History: Reports: Knee Replacement Oncologic Surgical History: Reports: Biopsy of Breast, Lumpectomy Social & Family History - Family History Family Medical History: Unobtainable - Caffeine Use Caffeine Use: Reports: Coffee Other Caffeine Use: decaf - Living Situation & Occupation Living situation: Reports: , with Spouse ED ROS GENERAL - Review of Systems Review Of Systems: See Below Constitutional: Reports: No Symptoms HEENT: Reports: No Symptoms Respiratory: Reports: No Symptoms Cardiovascular: Reports: No Symptoms Endocrine: Reports: No Symptoms GI/Abdominal: Reports: Abdominal Pain, Constipation, Decreased Appetite, Nausea Musculoskeletal: Reports: No Symptoms Skin: Reports: No Symptoms ED EXAM, GI/ABD - Physical Exam Exam: See Below Text/Narrative:: pt arrived with pain in the epigastric area. She has been nauseated an she does not feel like eating. Exam Limited By: No Limitations General Appearance: Alert, Anxious, Moderate Distress Ears: Normal TMs Nose: Normal Inspection Throat/Mouth: Normal Inspection Head: Atraumatic Neck: Normal Inspection Respiratory/Chest: No Respiratory Distress Cardiovascular: Regular Rate, Rhythm GI/Abdominal Exam: Tender, Other (pt is very tender in the epigastric area. ) (Female) Exam: Deferred Rectal (Female) Exam: Deferred Back Exam: Normal Inspection Extremities: Normal Inspection Neurological: Alert, Oriented, Normal Cognition Psychiatric: Anxious Course - Vital Signs Last Recorded V/S: Last Vital Signs Temp 36.9 C 12/02/19 15:26 Pulse 83 12/02/19 16:27 Resp 22 H 12/02/19 16:27 BP 152/87 H 12/02/19 16:27 Pulse Ox 99 12/02/19 16:27 - Orders/Labs/Meds Orders: Active Orders 24 hr Category Date Time Status EKG Documentation Completion [RC] ASDIRECTED Care 12/02/19 15:30 Active Abdomen Series w Chest 1V [CR] Stat Exams 12/02/19 15:48 Taken Sodium Chloride 0.9% [Normal Saline] 1,000 ml Med 12/02/19 15:45 Active IV ASDIRECTED EKG 12 Lead [EK] Routine Ther 12/02/19 15:30 Ordered Medication Orders Sodium Chloride (Normal Saline) 1,000 mls @ 500 mls/hr IV ASDIRECTED KELLIE Last Admin: 12/02/19 16:06 Dose: 500 mls/hr Documented by: KATHERINE Labs: Laboratory Tests 12/02/19 12/02/19 12/02/19 Range/Units 15:21 15:26 15:26 WBC 8.3 (4.5-11.0) K/uL RBC 5.16 (3.30-5.50) M/uL Hgb 15.4 H (12.0-15.0) g/dL Hct 45.2 (36.0-48.0) % MCV 88 (80-98) fL MCH 30 (27-31) pg MCHC 34 (32-36) % Plt Count 281 (150-400) K/uL Neut % (Auto) 66 (36-66) % Lymph % (Auto) 22 L (24-44) % [place] % (Auto) 9 H (2-6) % Eos % (Auto) 2 (2-4) % Baso % (Auto) 1 (0-1) % PT (9.5-12.0) sec INR (0.80-1.20) Sodium (140-148) mmol/L Potassium (3.6-5.2) mmol/L Chloride (100-108) mmol/L Carbon Dioxide (21-32) mmol/L Anion Gap (5.0-14.0) mmol/L BUN (7-18) mg/dL Creatinine (0.6-1.0) mg/dL Est Cr Clr Drug Dosing mL/min Estimated GFR (MDRD) (>60) Glucose (74-106) mg/dL Calcium (8.5-10.1) mg/dL Total Bilirubin (0.2-1.0) mg/dL AST (15-37) U/L ALT (12-78) U/L Alkaline Phosphatase (46-116) U/L Troponin I (0.000-0.056) ng/mL C-Reactive Protein 0.22 (0.0-0.3) mg/dL Total Protein (6.4-8.2) g/dL Albumin (3.4-5.0) g/dL Globulin (2.3-3.5) g/dL Albumin/Globulin Ratio (1.2-2.2) Lipase (73-393) U/L Urine Color Yellow (YELLOW) Urine Appearance Clear (CLEAR) Urine pH 7.0 (5.0-8.0) Ur Specific [place] 1.020 (1.008-1.030) Urine Protein Negative (NEGATIVE) mg/dL Urine Glucose (UA) Negative (NEGATIVE) mg/dL Urine Ketones Negative (NEGATIVE) mg/dL Urine Occult Blood Negative (NEGATIVE) Urine Nitrite Negative (NEGATIVE) Urine Bilirubin Negative (NEGATIVE) Urine Urobilinogen 0.2 (0.2-1.0) EU/dL Ur Leukocyte Esterase Negative (NEGATIVE) Urine RBC Not seen (0-5) Urine WBC Not seen (0-5) Ur Epithelial Cells Moderate Urine Bacteria Not seen 12/02/19 12/02/19 12/02/19 Range/Units 15:26 15:26 15:35 WBC (4.5-11.0) K/uL RBC (3.30-5.50) M/uL Hgb (12.0-15.0) g/dL Hct (36.0-48.0) % MCV (80-98) fL MCH (27-31) pg MCHC (32-36) % Plt Count (150-400) K/uL Neut % (Auto) (36-66) % Lymph % (Auto) (24-44) % [place] % (Auto) (2-6) % Eos % (Auto) (2-4) % Baso % (Auto) (0-1) % PT 25.3 H (9.5-12.0) sec INR 2.36 H (0.80-1.20) Sodium 129 L (140-148) mmol/L Potassium 4.2 (3.6-5.2) mmol/L Chloride 94 L (100-108) mmol/L Carbon Dioxide 25 (21-32) mmol/L Anion Gap 14.2 H (5.0-14.0) mmol/L BUN 11 (7-18) mg/dL Creatinine 1.2 H (0.6-1.0) mg/dL Est Cr Clr Drug Dosing 36.17 mL/min Estimated GFR (MDRD) 43 L (>60) Glucose 114 H (74-106) mg/dL Calcium 9.9 (8.5-10.1) mg/dL Total Bilirubin 0.7 (0.2-1.0) mg/dL AST 22 (15-37) U/L ALT 28 (12-78) U/L Alkaline Phosphatase 75 (46-116) U/L Troponin I < 0.017 (0.000-0.056) ng/mL C-Reactive Protein (0.0-0.3) mg/dL Total Protein 7.0 (6.4-8.2) g/dL Albumin 4.0 (3.4-5.0) g/dL Globulin 3.0 (2.3-3.5) g/dL Albumin/Globulin Ratio 1.3 (1.2-2.2) Lipase (73-393) U/L Urine Color (YELLOW) Urine Appearance (CLEAR) Urine pH (5.0-8.0) Ur Specific [place] (1.008-1.030) Urine Protein (NEGATIVE) mg/dL Urine Glucose (UA) (NEGATIVE) mg/dL Urine Ketones (NEGATIVE) mg/dL Urine Occult Blood (NEGATIVE) Urine Nitrite (NEGATIVE) Urine Bilirubin (NEGATIVE) Urine Urobilinogen (0.2-1.0) EU/dL Ur Leukocyte Esterase (NEGATIVE) Urine RBC (0-5) Urine WBC (0-5) Ur Epithelial Cells Urine Bacteria 12/02/19 Range/Units 15:53 WBC (4.5-11.0) K/uL RBC (3.30-5.50) M/uL Hgb (12.0-15.0) g/dL Hct (36.0-48.0) % MCV (80-98) fL MCH (27-31) pg MCHC (32-36) % Plt Count (150-400) K/uL Neut % (Auto) (36-66) % Lymph % (Auto) (24-44) % [place] % (Auto) (2-6) % Eos % (Auto) (2-4) % Baso % (Auto) (0-1) % PT (9.5-12.0) sec INR (0.80-1.20) Sodium (140-148) mmol/L Potassium (3.6-5.2) mmol/L Chloride (100-108) mmol/L Carbon Dioxide (21-32) mmol/L Anion Gap (5.0-14.0) mmol/L BUN (7-18) mg/dL Creatinine (0.6-1.0) mg/dL Est Cr Clr Drug Dosing mL/min Estimated GFR (MDRD) (>60) Glucose (74-106) mg/dL Calcium (8.5-10.1) mg/dL Total Bilirubin (0.2-1.0) mg/dL AST (15-37) U/L ALT (12-78) U/L Alkaline Phosphatase (46-116) U/L Troponin I (0.000-0.056) ng/mL C-Reactive Protein (0.0-0.3) mg/dL Total Protein (6.4-8.2) g/dL Albumin (3.4-5.0) g/dL Globulin (2.3-3.5) g/dL Albumin/Globulin Ratio (1.2-2.2) Lipase 81 (73-393) U/L Urine Color (YELLOW) Urine Appearance (CLEAR) Urine pH (5.0-8.0) Ur Specific [place] (1.008-1.030) Urine Protein (NEGATIVE) mg/dL Urine Glucose (UA) (NEGATIVE) mg/dL Urine Ketones (NEGATIVE) mg/dL Urine Occult Blood (NEGATIVE) Urine Nitrite (NEGATIVE) Urine Bilirubin (NEGATIVE) Urine Urobilinogen (0.2-1.0) EU/dL Ur Leukocyte Esterase (NEGATIVE) Urine RBC (0-5) Urine WBC (0-5) Ur Epithelial Cells Urine Bacteria Meds: Medications Generic Name Dose Route Start Last Admin Trade Name Freq PRN Reason Stop Dose Admin Sodium Chloride 1,000 mls @ 500 mls/hr 12/02/19 15:45 12/02/19 16:06 Normal Saline IV 500 mls/hr ASDIRECTED KELLIE Administration Discontinued Medications Generic Name Dose Route Start Last Admin Trade Name Freq PRN Reason Stop Dose Admin Al Hydroxide/Mg Hydroxide 15 0 ml 12/02/19 16:27 12/02/19 16:33 ml/ Lidocaine HCl 15 ml PO 12/02/19 16:28 15 ml ONETIME ONE Administration Lorazepam 0.5 mg 12/02/19 15:39 12/02/19 16:13 Ativan PO 12/02/19 15:40 0.5 mg ONETIME ONE Administration Ondansetron HCl 4 mg 12/02/19 15:35 12/02/19 16:06 Zofran IVPUSH 12/02/19 15:36 4 mg ONETIME ONE Administration Pantoprazole Sodium 40 mg 12/02/19 15:36 12/02/19 16:05 Protonix Iv IVPUSH 12/02/19 15:37 40 mg ONETIME ONE Administration - Re-Assessments/Exams Free Text/Narrative Re-Assessment/Exam: 12/02/19 16:48 pt had normal lab work. Her flat and upright was normal. pt was given protonix 40 mg, zoforan 4 mg iv and a gi cocktail. She is feeling better at this time. She will be scoped to look for irritation or a ulcer. Departure - Departure Time of Disposition: 16:39 Disposition: Home, Self-Care 01 Condition: Fair Clinical Impression: Gastrointestinal irritation, Anxiety - Discharge Information Instructions: Gastritis, Adult, [id number] Referrals: PCP,None [Primary Care Provider] - Forms: ED Department Discharge Care Plan Goals: increase prilosec to twice daily for her stomach, eat frequent small meals, zoforan 4 mg q 6h prn for nausea, use the xanx a full pill at bedtime, will schedule a appt for a gastroscope. follow up with Dr Leonard in 5 days. rtc if pt is having increased pain. Sepsis Event Note (ED) - Focused Exam Vital Signs: Vital Signs Temp Pulse Resp BP Pulse Ox 12/02/19 16:27 83 22 H 152/87 H 99 12/02/19 15:26 36.9 C 99 22 H 152/133 H 92 L 12/02/19 15:21 36.9 C 99 22 H 152/133 H 92 L - My Orders Last 24 Hours: My Active Orders 12/02/19 15:30 EKG Documentation Completion [RC] ASDIRECTED EKG 12 Lead [EK] Routine 12/02/19 15:45 Sodium Chloride 0.9% [Normal Saline] 1,000 ml IV ASDIRECTED 12/02/19 15:48 Abdomen Series w Chest 1V [CR] Stat - Assessment/Plan Last 24 Hours: My Active Orders 12/02/19 15:30 EKG Documentation Completion [RC] ASDIRECTED EKG 12 Lead [EK] Routine 12/02/19 15:45 Sodium Chloride 0.9% [Normal Saline] 1,000 ml IV ASDIRECTED 12/02/19 15:48 Abdomen Series w Chest 1V [CR] Stat
[2019-12-02] MEDS ORDERED: Ondansetron 4 MG/2 ML SDV IVPUSH ONE (15:35)
[2019-12-02] MEDS ORDERED: Pantoprazole 40 MG Vial IVPUSH ONE (15:36)
[2019-12-02] MEDS ORDERED: LORazepam 0.5 MG Tab PO ONE (15:39)
[2019-12-02] MEDS ORDERED: Sodium Chloride 0.9% 1,000 ML IV SCH (15:45)
[2019-12-02] MEDS ORDERED: Alum Hydrox/Mag Hydrox/Simeth 15 ML, Lidocaine 2% 15 ML PO ONE ×2 (16:27)
[2019-12-02 16:28] VITALS: BP 152/87; PULSE 83
--- NOTE | 2019-12-03 09:19 | CR ---
Abdomen Series w Chest 1V CLINICAL HISTORY: Upper abdominal pain FINDINGS: Lungs are clear. Heart is moderately enlarged. No free air is identified. Small intestinal configuration is nonacute. There is gas and feces throughout the colon. There has been previous right upper quadrant surgery IMPRESSION: Nonacute intestinal gas pattern Moderate cardiomegaly
== END 2019-12-02 16:54 | disposition home or self-care (01) ==
LOC: JP.ED 14:59
DX: F41.9 Anxiety disorder, unspecified (principal); K92.89 Other specified diseases of the digestive system; R10.13 Epigastric pain; I11.0 Hypertensive heart disease with heart failure; I50.9 Heart failure, unspecified; I48.91 Unspecified atrial fibrillation; M10.9 Gout, unspecified; F32.9 Major depressive disorder, single episode, unspecified; E03.9 Hypothyroidism, unspecified; E66.9 Obesity, unspecified; Z68.32 Body mass index [BMI] 32.0-32.9, adult; Z90.49 Acquired absence of other specified parts of digestive tract; Z90.710 Acquired absence of both cervix and uterus; Z79.01 Long term (current) use of anticoagulants; Z79.899 Other long term (current) drug therapy; Z88.0 Allergy status to penicillin; Z88.6 Allergy status to analgesic agent
CPT/HCPCS: 36415; 74022; 80053; 81001; 83690; 84484; 85025; 85610; 86140; 93005; 96361; 96374; 96375; 99284; A9270; C9113; J2405; J7030

== ENCOUNTER 2019-12-13 06:54 | Day surgery (SDC) | payer MEDICARE ==
[2019-12-13] MEDS ORDERED: Sodium Chloride 0.9% 1,000 ML IV SCH (07:30)
[2019-12-13] MEDS ORDERED: Propofol 200 MG/20 ML SDV ONE (08:21)
[2019-12-13 09:44] VITALS: BP 165/94; PULSE 85
--- NOTE | 2019-12-13 09:56 | OR ---
DATE OF PROCEDURE: 12/13/2019 SURGEON: Chong Castillo MD PROCEDURE: Esophagogastroduodenoscopy. FINDINGS: Normal esophagogastroduodenoscopy. COMPLICATIONS: None. 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 ANESTHESIA: MAC. PREOPERATIVE DIAGNOSIS: Epigastric pain. POSTOPERATIVE DIAGNOSIS: Epigastric pain. RISKS: Risks, benefits, alternatives, and limitations including, but not limited to infection, bleeding, and perforation were explained to the patient, who wished to proceed. PROCEDURE IN DETAIL: The patient was placed in left lateral decubitus position. EGD scope was introduced and advanced atraumatically to the second part of the duodenum. No evidence of duodenitis or ulceration. Within the stomach itself, no evidence of gastritis or ulceration. On retroflexion, no hiatal hernia. GE junction was normal. The esophagus did not show any inflammation or abnormality. The patient tolerated the procedure well. No abnormalities on retroflexion in the stomach itself. Chong Castillo MD /[id number]
== END 2019-12-13 09:55 | disposition home or self-care (01) ==
LOC: JP.SDS 06:54
PROVIDERS: ATTEND Surgery
DX: R10.13 Epigastric pain (principal); G47.33 Obstructive sleep apnea (adult) (pediatric); I50.9 Heart failure, unspecified; Z88.0 Allergy status to penicillin; Z88.8 Allergy status to other drugs, medicaments and biological substances
CPT/HCPCS: 43235; J2704; J7030

== ENCOUNTER 2020-05-21 05:49 | Day surgery (SDC) | payer MEDICARE ==
[2020-05-21] MEDS ORDERED: Dextrose 5%-Lactated Ringers 1,000 ML IV SCH (07:00)
[2020-05-21] MEDS ORDERED: Propofol 200 MG/20 ML SDV ONE (07:18)
[2020-05-21] MEDS ORDERED: fentaNYL 100 MCG/2 ML SDV ONE (07:18)
[2020-05-21] MEDS ORDERED: Meropenem 500 MG in Sodium Chloride 0.9% 50 ML IV ONE (07:30)
[2020-05-21 09:49] VITALS: BP 128/81; PULSE 79
--- NOTE | 2020-05-25 12:55 | OR ---
DATE OF PROCEDURE: 05/21/2020 SURGEON: Fernando White MD PREOPERATIVE DIAGNOSES: 1. History of colon polyps. 2. 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 POSTOPERATIVE DIAGNOSES: 1. No recurrent colon polyps. 2. 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 OPERATIVE PROCEDURE: Flexible colonoscopy with dilation of colorectal anastomosis (99046). ANESTHESIA: IV sedation. INDICATIONS FOR PROCEDURE: A 80-year-old female with history of colon polyps as well as a stricture at colorectal anastomosis down through previous resection. Plan is to proceed with a flexible colonoscopy with dilation and/or polypectomies as indicated. Potential risks including bleeding and perforation were discussed, and the patient wishes to proceed. DETAILS OF PROCEDURE: The patient was taken to the operating room, placed in a left lateral decubitus position. IV sedation was administered, after which the initial digital rectal exam was performed and was unremarkable. Colonoscope was then passed into the rectum with retroflexion revealing uncomplicated hemorrhoidal columns. Scope was then eventually passed up to the area of the colorectal anastomosis which was around 12 cm from the dentate line. The scope could not quite be passed through that anastomosis. A Bard gastrointestinal catheter was then centered across the anastomosis and inflated to 45-Ind[place] size. It was held in position for 1 minute, after which balloon catheter was deflated and withdrawn. Scope could then easily be passed through the area without complications being evident dilation. Remainder of the examination was otherwise unremarkable. Prep was good. There were no areas of recurrent polyp formation or other signs of neoplasia, and the scope was then withdrawn and the above findings reconfirmed, and the procedure was then concluded. At age 80, a followup colonoscopy would be required based on the patient's symptoms if they arise with regard to the stricture. At this point, these appear to have been minimally symptomatic and would only need to be looked at if the patient develops symptoms suggestive of partial obstruction at the colorectal anastomosis. Fernando White MD /[id number]
== END 2020-05-21 10:05 | disposition home or self-care (01) ==
LOC: JP.SDS 05:49
PROVIDERS: ATTEND Surgery
DX: K91.89 Other postprocedural complications and disorders of digestive system (principal); K56.699 Other intestinal obstruction unspecified as to partial versus complete obstruction; K64.9 Unspecified hemorrhoids; Z86.010 Personal history of colon polyps; Z88.0 Allergy status to penicillin; Z88.8 Allergy status to other drugs, medicaments and biological substances; Z87.891 Personal history of nicotine dependence; Z98.890 Other specified postprocedural states
CPT/HCPCS: J2185; J2704; J3010; J7121